=== PATIENT | female | born 1950 | race Caucasian/White ===

== ENCOUNTER 2018-01-02 13:37 | Inpatient (IN) | payer MEDICARE ==
[~2018-01-02] VITALS: Ht 167.6 cm; Wt 84.4 kg
[~2018-01-02 13:37] MED LIST: ASPIR 8181 MG PO; ATIVAN0.5 MG PO; CATAPRES0.1 MG PO; CIPRO500 MG PO; DIABETA5 MG PO; DOXYCYCLINE HY100 MG PO; ESTRADIOL0.5 MG PO; GLUCOPHAGE500 MG PO; GLYBURIDE2.5 MG PO; HYDROCODON-ACE1 EAC8 PO; IRON55 MG PO; LANTUS100 UNITS/ SUB-Q; LEVOTHROID50 MCG PO; LISINOPRIL10 MG PO; LOVASTATIN20 MG PO; METOPROLOL SUCC50 MG PO; METOPROLOL TART50 MG PO; NEURONTIN100 MG PO; NORCO 10-325 T1 EACH PO; OMEPRAZOLE20 MG PO; TOPROL XL50 MG PO; VENTOLIN HFA18 GM IH; VISTARIL50 MG PO; VITAMIN D-32000 UNIT PO; ZITHROMAX250 MG PO; ZOFRAN ODT4 MG SL
[2018-01-02] MEDS ORDERED: COZAAR100 MG PO (13:53)
--- NOTE | 2018-01-02 16:15 | NUR ---
TOOK ALL OF THE PATIENT BELONGINS HOME EXCEPT HER BLACK IN COLOR CELL PHONE
--- NOTE | 2018-01-02 17:14 | NUR ---
PT ADMITTED, ABLE TO HELP MOVE SELF SOME FROM STREACHER TO BED. ORDERS RECEIVED TO SWAB PT FOR FLU A/B AND SENT TO LAB. CBG Q HOUR, PT ON INSULINE DRIP AND CURRENTLY AT 8.8 UNITS/HR. PT IS ABLE TO KEEP SMALL AMOPUTS OF ICE CHIPS DOWN AT THIS TIME.
--- NOTE | 2018-01-02 17:54 | NUR ---
PT C/O PAIN IN THE VAGINAL AREA AND WHEN ASKED FOR MORE INFORMATION SHE STATES "IT IS MY CATHETER THAT IS PAINFUL" EXPAINED THAT IT CAN BE AND SHE WAS OKAY WITH THIS. PT ALSO WANTED SOMETHING TO EAT EXPALAIN THAT HER CBG REMAINS HIGH AND SHE HAS HAD N/V . BUT GAVE PT SOME CHICKEN BROTH.
--- NOTE | 2018-01-02 18:02 | NUR ---
CHANGED INSULIN GTT TO 13.2 UNITS/HR AT THIS TIME PER INSULIN TONY.
--- NOTE | 2018-01-02 18:35 | NUR ---
PT BP ELEVATED, BUT PT IS TRYING TO HAVE A BM ON THE BEDTIME AT THIS TIME. YOU CAN HEAR PT STRAINING AT THIS TIME. PT HAD TO BE REMINDED TO USE THE BEDPAN TO HAVE A BM. PT IS AT THE BEDSIDE AT THIS TIME.
--- NOTE | 2018-01-02 18:50 | NUR ---
PT BP RECHECKED 135/70 AT THIS TIME. PT HAS HAD ARM BENT AND TRYING TO HAVE BM, SHE PASSED SOME GAS AND HAD A SMEAR OF GREEN IN COLOR SOFT FORMED STOOL.
--- NOTE | 2018-01-02 20:00 | NUR ---
RECEIVED REPORT AT 1900, FOUND PT IN BED RESTING WITH AT BEDSIDE. PT IS ORINETED TO SELF AND PLACE. PERRLA IS POSITIVE, GLASCOW SCORE WAS 14, ALL LOBES ARE CLEAR, LOWER LOBES ARE DIMINISHED. ABD SOUNDS ARE PRESENT, NO PERIPHERAL EDEMA NOTED. RADIAL PULSES ARE +2, PEDIS PULSES ARE +1. PT OVERALL IS VERY WEAK. BOTH LEGS ARE VERY PALE BUT WARM TO TOUCH. PT STATED THAT SHE HAS NEUROPATHY IN BOTH LEGS. LEGS ARE PAINFUL TO TOUCH. STATED THAT HE GAVE PT LONG ACTING INSULIN BETWEEN 1100 AND 1200. BG AT 1999 WAS 519. WE ARE KEEPING CURRENT INSULIN DRIP RATE AT 13.2. URINE OUTPUT WAS 400ML AT FROM [id number]. URINE IS CLEAR AND YELLOW. HR RATE IS 120'S -170'S AT TIMES. RR RATE IS IN THE LOW 20'S FOR THE MOST PART.
--- NOTE | 2018-01-02 21:36 | NUR ---
BG AT 2100 WAS 413. INSULIN DRIP IS GOING AT 10.8 AT THIS TIME. PT GAVE ME SOME ANSWER TO HER MEDICAL HX.: HTN, HLD, NEUROPATHY, HYST., KIDNEY STONES, HYPO- OR HYPERTHYROIDISM, UMBILICAL HERNIA REPAIR AND BILATERAL FOOT SX. PT STATED THAT SHE JUST DID NOT FEEL LIKE TAKING HER BG. PT IS WELL AWARE THAT SHE WILL GET SICK. PT SEEMS DEPRESSED AND NOT COPING WELL WITH HER DIABETIS.
--- NOTE | 2018-01-02 22:09 | NUR ---
PT IS COMPLAINING OF NAUSEA AT THIS TIME. WILL CONTINUE TO MONITOR. BG AT 2200 WAS 331, INSULIN DRIP IS NOW GOING AT 7.5 UNITS/HR. URINE OUTPUT FROM [id number] WAS 210. HR AT THIS TIME IS 86, RR IS 19.
--- NOTE | 2018-01-02 22:37 | NUR ---
BP AT 2230 WAS 85/61 (67) WITH A HR OF 80. AT 2234 BP WAS 84/41 (52) WITH HR OF 80. O2 SATS ARE >95% ON RA. MD MONTAÑO WAS CALLED. ORDER WAS GIVEN TO TAKE V/S Q15MIN X2. IF NO CHANGE I WILL CALL HER BACK.
--- NOTE | 2018-01-02 23:06 | NUR ---
BP AT THIS TIME IS WDL AND SO IS HR WELL O2 SATS. BG AT 2300 WAS 219, INSULIN DRIP WAS TITRATED TO 5.1 UINITS/HR. NAUSEA HAS SUBSIDED PT HAS STATED. SINCE BG IS DROPING AT ALMOST A 100UNITS/HR, I WILL TAKE BG AGAIN AT 2330.
--- NOTE | 2018-01-02 23:31 | NUR ---
A PRECAUTIONARY BG WAS TAKEN AT THE 1/2 HOUR TY. IT WAS 201. I WILL INFORM MD MONTAÑO OF THIS SINCE SHE WANTED TO BE CALLED AT BG BEIN 200.
--- NOTE | 2018-01-02 23:45 | NUR ---
RECEIVED NEW ORDERS FOR IV FLUIDS FROM MD MONTAÑO. INSULIN DRIP IS GOING AT 4.2 U/HR AT THIS POINT.
--- NOTE | 2018-01-03 00:10 | NUR ---
BG AT 0000 WAS 175, INSULIN DRIP IS AT 3.6 U/HR AT THIS TIME. LAB IS HERE AT THIS TIME. URINE OUTPUT FROM [id number] WAS ONLY 50ML. I WILL WAIT FOR LABS TO COME BACK AND THEN I WILL CALL MD MONTAÑO.
--- NOTE | 2018-01-03 01:14 | NUR ---
URINE OUTPUT FOR [id number] WAS 25ML. MD MONTAÑO WAS CALLED. WILL CONTINUE TO MONITOR. BG AT 0100 WAS 167, INSULIN DRIP IS GOING AT 3.6 U/HR.
--- NOTE | 2018-01-03 02:05 | NUR ---
BG AT 0200 WAS 95. INSULIN DRIP HAS BEEN TURNED OFF AT THIS TIME.
--- NOTE | 2018-01-03 03:15 | NUR ---
BG AT 0300 WAS 122. INSULIN DRIP RE-STARTED IN COLUM 2 @ 1.4 U/HR. URINE OUTPUT FROM [id number] WAS 40ML. WILL CONTINUE TO MONITOR.
--- NOTE | 2018-01-03 04:05 | NUR ---
BG AT 0400 WAS 93. INSULIN DRIP HAS BEEN TURNED OFF. URINE OUT PUT FROM [id number] HAS INCREASED TO 40ML. V/S OVERALL ARE WDL.
--- NOTE | 2018-01-03 05:12 | NUR ---
BG WAS 106. INSULIN DRIP HAS NOT BEEN STARTED. PT IS SLEEPING.
--- NOTE | 2018-01-03 05:53 | NUR ---
AT START OF SHIFT SBP'S WERE <90 MD MONTAÑO IS AWARE. URINE OUTPUT DECLINED DURING THE COURSE OF THE NIGHT TO 25ML/HR AT ONE POINT. MD MONTAÑO IS AWARE. INSULIN DRIP WAS TITRATED ALMOST HOURLY UNTIL 0400. AT THAT TIME, PT BG WAS 93 AND DRIP HAS SINCE THEN BEEN TURNED OFF. ALL LOBES ARE STILL CLEAR BUT BASES ARE DIMINISHED.ABD SOUNDS WENT FROM ACTIVE TO HYPOACTIVE THIS SHIFT. PT IS PASSING GAS. PT WENT FROM NO PERIPHERAL EDEMA TO TRACE EDEMA ON BOTH FEET AND HANDS. PEDIS PULSES WENT FROM +1 TO +2 AT THIS TIME. PT WENT FROM ORIENTED TO PLACE AND PERSON TO AAO X4 AT THIS TIME. OVERALL STRENGTH HAS ALSO SLIGHTLY IMPROVED. PT HAS REMAINED AFEBRILE SO FAR. NO NEW CONCERNS AT THIS TIME.
--- NOTE | 2018-01-03 07:37 | EKG ---
[facility] [address] [place], [place] [address] Signed Sinus tachycardia Possible Left atrial enlargement Inferior infarct , age undetermined ST \T\ T wave abnormality, consider lateral ischemia Abnormal ECG No previous ECGs available Confirmed by KATHARINE VALDEZ MD ([id number]) on 01/03/2018 7:37:31 AM Electronically Signed By: KATHARINE VALDEZ MD 01/03/18 0737 PATIENT NAME: PEPE STEVENS Electrocardiogram DATE OF : 54 PHYSICIAN: KATHARINE VALDEZ MD REPORT #: [id number] REPORT IS CONFIDENTIAL AND NOT TO BE RELEASED WITHOUT AUTHORIZATION
--- NOTE | 2018-01-03 07:50 | NUR ---
PT DROWSY, COOPERATIVE. DENIES PAIN, NAUSEA, AND SOB AT THIS TIME. VITALS WNL. IN ROOM TO SEE PT.
--- NOTE | 2018-01-03 08:42 | NUR ---
IV SITES INTACT, NO REDNESS OR SWELLING NOTED, PT DENIES PAIN WITH FLUSH, FLUIDS INFUSING EASILY. PT HAS AGREED TO TRY SOME BREAKFAST AND GET UP TO THE CHAIR WHEN IT GETS HERE. PT COOPERATIVE, ALERT AND ORIENTED X4 AT THIS TIME.
--- NOTE | 2018-01-03 09:05 | NUR ---
PT UP TO THE CHAIR TO EAT BREAKFAST. PT ABLE TO STAND AND PIVOT TO CHAIR INDEPENDTLY.
--- NOTE | 2018-01-03 11:13 | NUR ---
PT BACK TO BED FROM CHAIR. STAND BY ASSIST TO STAND AND PIVOT. PT C/O FATIGUE.
--- NOTE | 2018-01-03 11:46 | NUR ---
PT SLEEPING SOUNDLY AT THIS TIME, VITALS WNL.
--- NOTE | 2018-01-03 13:59 | NUR ---
PTS BLOOD SUGAR 218, INSULIN DRIP TITRATED TO 5.1
--- NOTE | 2018-01-03 16:12 | NUR ---
IV SITES INTACT, NO REDNESS OR SWELLING NOTED, FLUIDS INFUSING EASILY. PT DENIES PAIN, NAUSEA, AND SOB AT THIS TIME. PT UP TO BEDSIDE COMMODE, PASSED LARGE AMOUNTS OF FLATUS, PT THEN MOVED BACK TO BED, SITTING UP ON SIDE OF BED. PT HAD PARTIAL BED BATH, SHAMPOO CAP, CLEAN GOWN. PT BRUSHED OWN THEETH.
--- NOTE | 2018-01-03 19:45 | NUR ---
PT SHIFT REPORT RECEIVED FROM DAY SHIFT RN. PT DAYSHIFT RN STOP INSULIN GTT AT THIS TIME AND START BLOOD SUGARS ACHS. CONTINUE FLUIDS AT CURRENT RATE. PT IS RESTING IN BED WITH AT BEDSIDE. NO OTHER NEEDS AT THIS TIME.
--- NOTE | 2018-01-03 20:30 | NUR ---
PT SHIFT ASSESSMENT COMPLETED. PT HAS CLEAR BREATH SOUNDS AND REMAINS ON ROOM AIR. BOWEL TONES ACTIVE. PT HAS NOTED GENERALIZED EDEMA IN ARMS/HANDS. 1+ EDEMA IN ANKLES/SHINS. PT STATES "MY LEGS FEEL TIGHT, AND MY KNEE FEELS TIGHT". NO REDDNESS NOTED IN LEGS. APPLIED NYSTATIN TO GROIN FOR REDDENED AREA. PT EDUCATED ABOUT INSLUIN AND UPDATED ON PLAN OF CARE FOR THE EVENING. PT IS AGREEABLE TO THIS PLAN. WILL CONTINUE TO MONITOR. CALL LIGHT IN HAND.
--- NOTE | 2018-01-03 21:00 | NUR ---
PT READJUSTED WITH PILLOW SUPPORT. ELEVATED LEGS TO HELP WITH EDEMA. PT HAS CALL LIGHT IN HAND AND KNOWS TO CALL FOR ASSISTANCE. CALL LIGHT IN HAND. PT DENIES ANY OTHER NEEDS AT THIS TIME. WILL CONTINUE TO MONITOR.
--- NOTE | 2018-01-03 22:30 | NUR ---
PT RESTING WELL AT THIS TIME. WILL ENCOURAGE REST. PT HAS CALL LIGHT IN HAND.
--- NOTE | 2018-01-04 00:13 | NUR ---
PT IS RESTING WELL AT THIS TIME IN BED. PT IS TURNED ONTO HER SIDE WHEN I ENTERED THE ROOM. PT BS CHECKED 247. PT IS ALERT AND ORIENTED. BREATH SOUNDS REMAIN CLEAR. REHMAN EMPTIED. PT DENIES ANY NEEDS AT THIS TIME. VITALS COMPLETED. WILL CONTINUE TO CLOSELY MONITOR.
--- NOTE | 2018-01-04 02:00 | NUR ---
PT UP TO CAMMODE WITH 1 PERSON STAND-BY. PT TOLERATED WELL. PT BACK TO BED WITH NO DIFFICULTIES. CALL LIGHT IN REACH. WILL CONTINUE TO CLOSELY MONITOR.
--- NOTE | 2018-01-04 05:00 | NUR ---
PT RESTING IN BED. ASSESSMENT COMPLETED AND UNCHANGED FROM PREVIOUS ASSESSMENT. PT VITALS DONE. PT UP TO CAMMODE. NO BM PRESENT, PT STATES "IT WAS ALL GAS". PT BACK TO BED AND RESTING ON SIDE WITH CELL PHONE IN HAND. REHMAN BAG EMPTIED. BREAKFAST ORDERED. CALL LIGHT IN REACH. WILL CONTINUE TO CLOSELY MONITOR.
--- NOTE | 2018-01-04 06:02 | NUR ---
LAB IN TO DRAW MORNING LABS. NO OTHER ISSUES AT THIS TIME. WILL CONTINUE TO CLOSELY MONITOR.
[2018-01-04] MEDS ORDERED: NOVOLIN N100 UNIT/1 SUB-Q (07:06)
[2018-01-04] MEDS ORDERED: METOPROLOL TAR100 MG PO (07:07)
--- NOTE | 2018-01-04 08:19 | NUR ---
PT UP WITH ONE PERSON ASSIST TO BSC, NO BM, PASSING GAS. PT TRANSFERRED TO [facility] CHAIR - VITAL SIGNS TAKEN AND PT EATING ADA BREAKFAST. DR. VALDEZ IN TO ASSESS PT.
[2018-01-04] MEDS ORDERED: GLUCOPHAGE500 MG PO (08:40)
--- NOTE | 2018-01-04 09:00 | NUR ---
PT IN CHAIR AWAKE DID VITALS FOR INTAKE
--- NOTE | 2018-01-04 10:29 | NUR ---
AFTER BREAKFAST PT HAD MED SOFT BROWN BM AND RETURNED TO BED, RESTING WITH HOB ELEVATED. REPORT GIVEN TO SB LOZANO ON MED/SURG. 5 UNITS NOVALOG GIVEN SUBQ FOR AM BLOOD GLUCOSE 227. PT UP TO [facility] CHAIR WITH ONE PERSON ASSIST, DAUGHTER IN ROOM.
--- NOTE | 2018-01-04 11:13 | NUR ---
PT UP TO [facility] CHAIR VISITING WITH FRIEND AND FAMILY MEMBER. PT TRANSFERRED TO MED/SURG ROOM 113 VIA [facility] CHAIR.
--- NOTE | 2018-01-04 11:40 | NUR ---
PATIENT TO FLOOR FROM CCU, FULL VERBAL REPORT FROM TONYA. COLLECTED PATIENT CBG AND PROVIDED LUNCH. PT/OT TO ROOM FOR EVALUATION. LUNG SOUNDS CLEAR THROUGHUT, FULL BODY ASSESMENT DONE. CALL LIGHT WITHIN REACH AND ORIENTED TO ROOM.
--- NOTE | 2018-01-04 12:10 | NUR ---
SET UP FOR LUNCH
--- NOTE | 2018-01-04 14:41 | NUR ---
Patient showered at 1400 with cna2 assist. She ambulated from chair to bathroom with stand-by assist. Nystatin powder placed on right and left pannus. Patient back in bed, call light within reach.
--- NOTE | 2018-01-04 17:41 | NUR ---
PATIENT UP TO BATHROOM, VOIDING WELL SINCE ORI HILL'Andrzej EARLIER TODAY. PATIENT EATING WELL. COMPLAINTS OF PAIN TO LEFT KNEE, NEW ORDER VIA DR. VALDEZ IBUPROFEN PO 400 MG Q6HR. PATIENT RECIEVING SLIDING SCALE.
--- NOTE | 2018-01-04 18:15 | NUR ---
PATIENT TO FLOOR FROM CCU WITH DX OF DKA. CBG ACHS WITH SLIDING SCALE. SOME GENERALIZED WEAKNESS, RECIEVING PT/OT FOR STRENGTHENING- EVALUATION TODAY. HAD SOME COMPLAINTS OF PAIN IN LEFT KNEE AFTER ACTIVITY, NEW ORDER FOR PO IBUPROFEN. IN ROOM WITH PATIENT. AAOX3, CALLS APROPRIATLEY. REHMAN DCD TODAY, VOIDING WELL. HAD LARGE BM.
--- NOTE | 2018-01-04 19:35 | NUR ---
RECIEVED REPORT FROM DAY SHIFT NURSE. PATIENT SITTING UP IN CHAIR. DENIES NEEDS AT THIS TIME. CALL LIGHT IN REACH.
--- NOTE | 2018-01-04 19:49 | NUR ---
VITALS AND I&OS DONE AND CHARTED. HELPED PT TO THE BATHROOM WITH HER FWW AND BACK TO BED. BEDSIDE TABLE AND CALL LIGHT WITHIN REACH.SHE NEEDS NOTHING ELSE AT THIS TIME.
--- NOTE | 2018-01-04 22:19 | NUR ---
PATIENT UP TO BATHROOM WITH ASSIST. VOIDED. BACK TO BED. LUNGS CLEAR, HR REGULAR, BS ACTIVE, ABDOMEN ROUND. +1 PEDAL EDEMA. PATIENT C/O L KNEE PAIN 4/10 BUT STATES SHE CAN WAIT UNTIL 0000 FOR IBUPROFEN. PATIENT ALSO C/O CHEST PAIN THAT CAME AND WENT VERY FAST. STATES IT HAPPENS AT HOME SOMETIMES. SHE DOES HAVE NITRO AT HOME BUT IT COMES AND GOES SO FAST SHE DOESNT TAKE IT. VS OBTAINED. PATIENT DENIES NAUSEA, SHE IS NOT DIAPHORETIC. SHE IS NO LONGER HAVING CHEST PAIN AT THIS TIME. WHEN IT HAPPENED SHE HAD A HARD TIME DESCRIBING THE PAIN. STATES IT WAS AN ACHE ABOUT 3/10 ON THE PAIN SCALE. NOTIFIED CHARGE.
--- NOTE | 2018-01-04 22:24 | NUR ---
VITALS DONE PER REQUEST OF HER RN JAYDA. NOTIFIED HER OF THE VITALS.
--- NOTE | 2018-01-04 23:21 | NUR ---
PATIENT RESTING SUPINE IN BED. NO C/O PAIN AT THIS TIME. REFILLED WATER PITCHER. PATIENT DENIES FURTHER NEEDS. CALL LIGHT IN REACH.
--- NOTE | 2018-01-05 02:15 | NUR ---
PATIENT RESTING IN BED. STATES SHE HAS A SANTANA, IBUPROFEN ADMINISTERED. SUPPLIED PATIENT WITH CRACKERS AND SUGAR FREE PUDDING TO TAKE WITH THE MEDICATION. PATIENT WANTED HOWARD CRACKERS AND I TOLD HER NO BECAUSE OF THE SUGAR CONTENT. ENCOURAGED ORAL FLUIDS. LUNGS CLEAR, HR REGULAR, BS ACTIVE. TRACE PEDAL EDEMA. PATIENT DENIES FURTHER NEEDS. CALL LIGHT IN REACH.
--- NOTE | 2018-01-05 04:40 | NUR ---
PATIENT SLEEPING. CALL LIGHT IN REACH.
--- NOTE | 2018-01-05 06:03 | NUR ---
VITALS AND I&OS DONE AND CHARTED. HELPED PT TO THE BATHROOM AND BACK TO BED WITH HER FWW. FRESH ICE GIVEN. BEDSIDE TABLE AND CALL LIGHT IN REACH. EMPTIED GARBAGES. PT ASKED FOR SOMETHING FOR A HEADACHE. I INFORMED HER RN JAYDA. PT NEEDS NOTHING ELSE AT THIS TIME.
--- NOTE | 2018-01-05 07:15 | NUR ---
RECIEVED BEDSIDE REPORT FROM BLAKE MONTELONGO WITH SN MYA. PT AWAKE AND ALERT IN BED. PT REPORTS NO PAIN AT THIS TIME.
--- NOTE | 2018-01-05 07:46 | NUR ---
PATIENT ASSISTED TO RESTROOM 1PERSON ASSIST. LINENS CHANGED. CHAIR AND MEAL SET UP FOR PATIENT FOR BREAKFAST. STUDENT NURSE IN ROOM TO ASSIST.
--- NOTE | 2018-01-05 09:59 | NUR ---
STUDENT NURSE IN ROOM TO ASSIST PATIENT WITH ORAL CARE. HANDS AND FACE WASHED. PATIENT WOULD LIKE SHOWER TODAY.
--- NOTE | 2018-01-05 10:24 | NUR ---
SPOKE WITH PT RE REPORTED CHEST PAIN. MD AWARE, NO NEW ORDERS. INDUSTRIAL SALES REPRESENTATIVE GETTING PT IN SHOWER.
--- NOTE | 2018-01-05 10:30 | NUR ---
STUDENT ASSISTING PATIENT WITH SHOWER.
--- NOTE | 2018-01-05 11:03 | NUR ---
PT RESTING IN BED. JUST GOT BACK IN BED FROM A SHOWER. NO NEEDS NOTED AT THIS TIME. PERSONAL BELONGINGS IN REACH.
--- NOTE | 2018-01-05 12:54 | NUR ---
PT SITTING IN CHAIR-ALERT, ORIENTED AND BEGINNING TO EAT LUNCH. PT FRIENDLY AND MENTIONED THAT SHE IS FEELING MUCH BETTER, BUT DIDN'T SLEEP VERY WELL LAST NIGHT. PT REQUESTED I CONTACT HER CLASSROOM INSTRUCTIONAL AIDE, WHICH I DID. HE WILL BE COMING IN. EXTENDED A BLESSING, WILL FOLLOW NEEDED
--- NOTE | 2018-01-05 13:53 | NUR ---
THIS RESISTANCE MACHINE WELDER SETTER ASSISTED PATIENT TO THE RESTROOM BY 1 PERSON ASSIST. ASSISTED PATIENT BACK TO BED. PATIENT IS NOW RESTING IN BED. PATIENT STATES THAT HER PAIN LEVEL IS A 7 OUT OF 10 IN HER BACK. RN NOTIFIED. PATIENTS IN ROOM. CALL LIGHT WITHIN REACH. FRESH ICE WATER. NO OTHER NEEDS AT THIS TIME.
--- NOTE | 2018-01-05 14:44 | NUR ---
PT RESTING IN BED, AT BEDSIDE. PERSONAL BELONGINGS IN REACH, CALL LIGHT AVAILABLE. IBUPROPHEN EFFECTIVE FOR BACK PAIN.
--- NOTE | 2018-01-05 16:36 | NUR ---
PATIENT RESTING ON THE COUCH. PATIENTS IN ROOM. FRESH ICE WATER. CALL LIGHT WITHIN REACH. NO OTHER NEEDS AT THIS TIME.
--- NOTE | 2018-01-05 18:03 | NUR ---
THIS SUPERVISOR FABRICATION ASSISTED PATIENT TO THE RESTROOM. 1 PERSON WITH FWW. PATIENTS AND DAUGHTER HAVING DINNER WITH PATIENT. ASSISTED PATIENT BACK TO COUCH. FRESH ICE WATER. CALL LIGHT WITHIN REACH. NO OTHER NEEDS AT THIS TIME.
--- NOTE | 2018-01-05 18:26 | NUR ---
PT MAINTAINED BLOOD SUGAR LEVELS, BREAKFAST 126, LUNCH 276, DINNER 159. PT RESTARTED ORAL DIABETIC MEDS TOLERATED WELL. PT C/O HEADACHE AND BACK PAIN, PRN IBUPROFEN GIVEN, EFFECTIVE. VOIDING WELL, MULTIPLE SMALL BM. IV SL.
--- NOTE | 2018-01-05 19:46 | NUR ---
RECEIVED REPORT FROM DAY SHIFT RN. PATIENT IS RESTING IN BED WATCHING TV. PATIENT DENIES ANY NEEDS AT THIS TIME. CALL LIGHT IN REACH.
--- NOTE | 2018-01-05 20:05 | NUR ---
CHECKED PT'S BS. PT IN BED, NO DISTRESS AT THIS TIME. RN IN ROOM, GIVING HS MEDICATIONS. PT HAS NO CONCERNS OR NEEDS FROM YOUTH LEADER AT THIS TIME. ALERT AND ORIENTED.
--- NOTE | 2018-01-05 20:20 | NUR ---
PATIENT ASSESMENT COMPLETED. PATIENTS EVENING MEDICATIONS GIVEN PER ORDER. PATIENT GIVEN PRN MOTRIN PER ORDER FOR A HEADACHE AND PAIN IN HER NECK. PATIENT GIVEN FRESH ICE WATER. PATIENT DENIES ANY FURTHER NEEDS AT THIS TIME. CALL LIGHT IN REACH.
--- NOTE | 2018-01-05 22:16 | NUR ---
1PA STANDBY ASSIST TO THE BATHROOM BACK TO BED WITH WALKER. PATIENT DID ORAL CARE, WASH HANDS AND COMB HER HAIR. CALL BUTTON WITHIN REACH. REQUESTED PAIN MEDS, BLAKE VALDIVIA WAS NOTIFIED.
--- NOTE | 2018-01-05 22:21 | NUR ---
PATIENT ASSISTED TO THE RESTROOM A SBA W/FWW. PATIENT HAD A SMALL BM X1 AND WAS ABLE TO VOID. PATIENT IS BACK IN BED RESTING. PATIENT TOLERATED AMBULATION WELL. PATIENT DENIES ANY FURTHER NEEDS CALL LIGHT IN REACH.
--- NOTE | 2018-01-05 23:20 | NUR ---
PATIENT IS RESTING IN BED PLAYING A GAME ON HER PHONE. PATIENT DENIES ANY NEEDS AT THIS TIME. CALL LIGHT IN REACH.
--- NOTE | 2018-01-06 00:23 | NUR ---
PATIENT ASSISTED TO THE RESTROOM. PATIENT IS A SBA W/FWW. PATIENT WAS ABLE TO VOID. PATIENT IS NOW BACK IN BED RESTING. PATIENT DENIES ANY FURTHER NEEDS. CALL LIGHT IN REACH.
--- NOTE | 2018-01-06 02:30 | NUR ---
PT UP TO BATHROOM. INCONTINENT OF BM. CHANGED BEDDING AND GOWN. PT OUT OF BED AND AMBULATED TO BATHROOM WITH FWW AND VERY MINIMAL ASSIST. PT THEN BACK IN BED. NO FURTHER NEEDS. CALL LIGHT IN REACH.
--- NOTE | 2018-01-06 03:43 | NUR ---
PATIENT ASSISTED TO THE RESTROOM A SBA W/FWW. PATIENT WAS ABLE TO VOID. PATIENT IS NOW BACK IN BED RESTING. NO FURTHER NEEDS NOTED. CALL LIGHT IN REACH.
--- NOTE | 2018-01-06 05:11 | NUR ---
PATIENT RESTED WELL THROUGHOUT THE SHIFT. PATIENT IS ON AN ADA DIET AND IS TOLERATING IT WELL. PATIENT IS A SBA W/FWW AND TOELRATES AMBULATION WELL. PATIENT IS SL AND IV FLUSHES WELL. PATIENT RECEIVED X1 MOTRIN FOR SANTANA. PATIENT HAD X2 BMS. PATIENT IS AAO X3 AND USES CALL LIGHT APPROPRIATELY.
--- NOTE | 2018-01-06 05:36 | NUR ---
PATIENT GIVEN PRN MOTRIN FOR A HEADACHE AND NECK ACHE. PATIENT RATES PAIN AT A 6/10. PATIENT IS RESTING IN BED PLAYING A BAME ON HER PHONE. PATIENT DENIES ANY FURTHER NEEDS CALL LIGHT IN REACH.
--- NOTE | 2018-01-06 06:05 | NUR ---
HELPED PT TO RESTROOM STANDBY ASSIST WITH WALKER. PT IS BACK IN BED AND CALL LIGHT IS WITHIN REACH.
--- NOTE | 2018-01-06 07:15 | NUR ---
RECIEVED BEDSIDE REPORT FROM BLAKE VALDIVIA. PT UP TO BATHROOM THEN BACK TO BED. PERSONAL SUPPLIES AND CALL LIGHT IN REACH. PT DENIED NEEDS.
--- NOTE | 2018-01-06 08:00 | NUR ---
PATIENT TO BATHROOM WITH STAND BY ASSIST WITH FWW. STUDENT NURSE IN ROOM. NO OTHER NEEDS AT THIS TIME.
--- NOTE | 2018-01-06 09:05 | NUR ---
PT UP WITH [facility] PHYSICAL THERAPY. PT DENIED NEEDS. AMBULATING WITH FWW WITH STANDBY ASSIST.
--- NOTE | 2018-01-06 09:30 | NUR ---
STUDENT NURSE OFFERED PATIENT ASSISTANCE WITH SHOWER. PATIENT REFUSED AND STATED SHE WOULD LIKE TO NAP AT THIS TIME. LINENS CHANGED. HANDS AND FACE WASHED.
--- NOTE | 2018-01-06 10:30 | NUR ---
STUDENT NURSE OFFERED TO ASSIST PATIENT WITH SHOWER FOR THE SECOND TIME. PATIENT REFUSED DUE TO SHE IS WAITING FOR HER TO COME VISIT.
--- NOTE | 2018-01-06 11:40 | NUR ---
PT SITTING UP IN RECLINER, EATING LUNCH. PERSONAL SUPPLIES AND CALL BUTTON IN REACH. PT DENIED NEEDS. BG WAS 322, SO GAVE NOVOLOG 7 UNITS SQ PER SSI ORDERS.
--- NOTE | 2018-01-06 12:20 | NUR ---
DR. THORNE IN TO SEE PT, DISCUSSED PLAN OF CARE, CHANGE IN INSULIN TO NPH. DR. THORNE DISCUSSED DIABETIC EDUCATION OPPORTUNITY WITH THE WINCH TRUCK OPERATOR, AND ASSESSED PT.
--- NOTE | 2018-01-06 13:41 | NUR ---
PT SITTING UP IN RECLINER, FAMILY MEMBER AT SIDE. PT RATED PAIN TO LEFT KNEE 2/10, STATED SHE FEELS "GOOD". DENIED NEEDS. PERSONAL SUPPLIES AND CALL LIGHT IN REACH.
--- NOTE | 2018-01-06 13:44 | NUR ---
PT SITTING UP IN RECLINER. ATE 50 % OF LUNCH. AT SIDE. PERSONAL SUPPLIES AND CALL BUTTON IN REACH.
--- NOTE | 2018-01-06 14:27 | NUR ---
PT SITTING IN CHAIR-ALERT, ORIENTED AND EATING LUNCH. SHE MENTIONED THAT SHE DID NOT SLEEP WELL LAST NIGHT, PARTLY BECAUSE SHE HAS SLEPT SO MUCH THE LAST FEW DAYS. FEELING MUCH BETTER THOUGH OVERALL, EXTENDED A BLESSING, WILL FOLLOW NEEDED
--- NOTE | 2018-01-06 15:15 | NUR ---
CARE CONFERENCE aTTENDEES: PATIENT, [place]E STAFF: DR THORNE, MYSELF CASE MANAGEMENT, [facility], HOLLIE PT, PABLO RN, AND QUINCY ACQUISITION ASSOCIATE. DR THORNE TALKED ABOUT HER DIABETIC KETOACIDOSIS. STATING THAT IT IS DOING MUCH BETTER NOW AND SHE IS DOING BETTER. SAYS THAT SHE WILL GET DIABETIC EDUCATION WHILE HERE AND SOME TRAINING IN DRAWING UP INSULIN FROM A VIAL. PT STATES SHE HAS DONE THAT IN THE PAST. PT STATEDS THAT SDHE WILL PROBABLY MEET HER PT GOALS BY FRIDAY OF 500 FT WITH A CANE[address] THORNE STATES THAT WHEN THAT GOAL IS MET SHE CAN BE DISCHARGED. PT DENIED FURTHER QUESTIONS, WILL CONT FOLLOWING HER THROUGHTOUT HER STAY IN HOSPITAL.
--- NOTE | 2018-01-06 15:24 | NUR ---
PT IN BED. ON COUCH. HAVING CARE CONFERENCE. ASTRID ARMSTRONG, PHARMACIST, HOLLIE, PHYSICAL THERAPIST, LEXY, ASSOCIATE PROFESSOR OF CRIMINAL JUSTICE, AND QUINCY, SPRAY GUN STRIPER IN ROOM FOR CARE CONFERENCE, WELL THIS RN. DISCUSSING GOALS, AND CARE PLAN.
--- NOTE | 2018-01-06 16:00 | NUR ---
PATIENT BACK TO BED FROM BATHROOM WITH FWW STAND BY ASSIST. CALL BUTTON IN REACH. IN ROOM. NO OTHER NEEDS AT THIS TIME.
--- NOTE | 2018-01-06 16:25 | NUR ---
PT SITTING UP IN RECLINER, PERSONAL SUPPLIES AND CALL LIGHT IN REACH. AT SIDE. BG CHECKED, 187.
--- NOTE | 2018-01-06 17:43 | NUR ---
PATIENT SITTING UP IN CHAIR EATING DINNER. PATIENTS IS IN ROOM EATING DINNER WELL. FRESH ICE WATER. CALL LIGHT WITHIN REACH. NO OTHER NEEDS AT THIS TIME.
--- NOTE | 2018-01-06 17:58 | NUR ---
PT UP WITH FWW WITH STANDBY ASSIST. WORKED WITH PHYSICAL THERAPY, WAS ABLE TO AMBULATE 50 FT WITH CANE, AND 500 FT WITH FWW. PER PHYSICAL THERAPY, GOAL IS TO AMBULATE 500 FT WITH CANE. PT ON ADA DIET, TOLERATING WELL. HAD SEVERAL LOOSE STOOLS, PT REPORTS THAT THIS IS HER BASELINE. STARTED METOPROLOL AND NPH INSULIN TODAY. IV SALINE LOCKED, NEW IV, 22G PLACED LEFT FOREARM FOR ROUTINE IV ROTATION.
--- NOTE | 2018-01-06 18:45 | NUR ---
PT SITTING UP IN RECLINER. IV FLUSHED WITH 10 CC NS, FLUSHES WELL. PT REPORT HEADACHE IS IMPROVED, RATED PAIN 2/10. DENIED NEEDS. PERSONAL SUPPLIES AND CALL BUTTON IN REACH.
--- NOTE | 2018-01-06 19:10 | NUR ---
RECEIVED REPORT FROM DAY SHIFT RN. PATIENT IS RESTING IN RECLINER EATING SUPPER. NO NEEDS NOTED AT THIS TIME. CALL LIGHT IN REACH.
--- NOTE | 2018-01-06 21:53 | NUR ---
PATIENT ASSESMENT COMPLETED. PATIENT ASSISTED TO THE RESTROOM A SBA W/CANE. PATIENT IS NOW BACK IN BED RESTING. PATIENTS EVENING MEDICATIONS GIVEN PER ORDER. PATIENT COMPLAINS OF A HEADACHE. PRN MOTRIN GIVEN PER ORDER FOR HEADACHE. PATIENT DENIES ANY FURTHER NEEDS AT THIS TIME. CALL LIGHT IN REACH.
--- NOTE | 2018-01-07 00:07 | NUR ---
PATIENT ASSISTED TO THE RESTROOM A SBA W/CANE. PATIENT IS STEADY ON HER FEET. PATIENT IS BACK IN BED RESTING. PATIENT WAS ABLE TO VOID. PATIENT DENIES ANY FURTHER NEEDS. CALL LIGHT IN REACH.
--- NOTE | 2018-01-07 02:45 | NUR ---
PATIENT IS RESTING IN BED PLAYING ON HER PHONE. PATIENT DENIES ANY NEEDS AT THIS TIME. CALL LIGHT IN REACH.
--- NOTE | 2018-01-07 03:47 | NUR ---
PATIENT ASSISTED TO THE RESTRROM BY SENIOR MEDICAL DIRECTOR. PATIENT REQUESTED MEDICATION FOR A HEADACHE. PATIENT GIVEN PRN MOTRIN FOR A HEADACHE. PATIENT DENIES ANY FURTHER NEEDS CALL LIGHT IN REACH.
--- NOTE | 2018-01-07 05:15 | NUR ---
PATIENT STRUGGLED TO REST ON THIS SHIFT. PATIENT IS ON AN ADA DIET AND IS TOLERATING IT WELL. PATIENT IS A SBA W/CANE AND TOELRATES AMBULATION WELL. PATIENT IS SL AND IV FLUSHES WELL. PATIENT RECEIVED X2 MOTRIN FOR HEADACHE. HAD X2 BMS. PATIENT IS AAO X3 AND USES CALL LIGHT APPROPRIATELY. PATIENT RECEIVED PRN ZOFRAN FOR NAUSEA.
--- NOTE | 2018-01-07 05:20 | NUR ---
PATIENT COMPLAINS OF NAUSEA. PATIENTS BS CHECKED AND IT WAS 151. PATIENTS VITALS TAKEN AND RECORDED. PATIENT GIVEN PRN ZOFRAN PER ORDER. PATIENT DENIES ANY FURTHER NEEDS AT THIS TIME. CALL LIGHT IN REACH.
--- NOTE | 2018-01-07 06:49 | NUR ---
PATIENT ASSISTED TO THE RESTRROM A SBA W/CANE. PATIENT RATES HER HEADACHE A 2/10. PATIENT HAD A LARGE LOOSE BM. PATIENT IS BACK IN BED RESTING NO FURTHER NEEDS NOTED. CALL LIGHT IN REACH.
--- NOTE | 2018-01-07 07:14 | NUR ---
RECIEVED BEDSIDE REPORT FROM BLAKE VALDIVIA. PT IN BED, AWAKE, ALERT. PERSONAL SUPPLIES IN REACH, IS CALL BUTTON.
--- NOTE | 2018-01-07 07:38 | NUR ---
PT TO BATHROOM, WALKS INDEPENDENTLY WITH CANE, WITH SBA PT COMPLAINS OF HEADACHE REQUESTS PRN MOTRIN. STATES THAT PAIN IS A 5/10 ON PAIN SCALE. PAIN MEDS NOT DUE UNTIL 929 PT MADE AWARE.
--- NOTE | 2018-01-07 07:50 | NUR ---
PT UPT TO CHAIR. ASSESSMENT PERFORMED PT COMPLAINED OF SOME NAUSEA, LAST DOSE OF ZOFRAN WAS AT 0505 NOT DUE AGAIN UNTIL 1105, PT MADE AWARE. POC BLOOD GLUCOSE 108MG/DL MORNING SLIDING SCALE INSULIN NOT GIVEN.
--- NOTE | 2018-01-07 08:00 | NUR ---
0800 MEDS GIVEN, PT VERBALIZED UNDERSTANDING OF WHAT EACH MEDICATION WAS FOR. PT HAD SOME DIFFICULTY WITH METFORMIN, TOOK BOTH AT ONCE WHICH CAUSED HER TO CHOKE. THE PATIENT COUGHED AND DRANK SOME SIPS OF WATER FOLLOWING THE INCIDENT AND DID NOT APPEAR TO HAVE ANY FURTHER COMPLICATION. ASKED THE PATIENT IF SHE HAS PROBLEMS WITH HER MEDICATIONS AT HOME AND SHE STATES THAT SHE DOES NOT. PT IS EATING BREAKFAST INDEPENDENTLY WITHOUT DIFFICULTY. PT HAS NO C/O
--- NOTE | 2018-01-07 08:30 | NUR ---
PT GIVEN AM MEDS, BP ELEVATED X3 LAST READING 160/90. PRIMARY RN NOTIFIED.
--- NOTE | 2018-01-07 09:00 | NUR ---
PT BACK TO CHAIR, WALKS INDEPENDENTLY USING CANE WITH SBA. PT HAS COMPLAINTS OF DIZZINESS WHILE WALKING. B/P RECHECKED WITH MANUAL CUFF 150/90. PRIMARY RN NOTIFIED OF THIS RESULT.
--- NOTE | 2018-01-07 09:30 | NUR ---
PT SHOWERED INDEPENDENTLY, SBA ONLY. PT STILL HAS COMPLAINTS OF NAUSEA. STATES THAT IV ZOFRAN HELPED SOME AND WONDERS IF SHE CAN HAVE ANOTHER DOSE, INFORMED PT THAT SHE WAS NOT DUE UNTIL 1130 BUT WOULD TALK WITH PRIMARY RN. PT HAS NOT OTHER C/O
--- NOTE | 2018-01-07 09:53 | NUR ---
PT TOOK SHOWER WITH ASSIST FROM STUDENT NURSE, KATIE. PT IS NOW SITTING UP IN RECLINER. DENIED NEEDS. PERSONAL SUPPLIES IN REACH, CALL BUTTON IN REACH.
--- NOTE | 2018-01-07 09:55 | NUR ---
PT INTERMEDIATE ACTIVNG INSULIN AND LOVENOX ADMINISTERED, PT VERBALIZED UNDERSTANDING OF WHY EACH WAS GIVEN. THE PT HAS NO C/O AT THIS TIME.
--- NOTE | 2018-01-07 10:30 | NUR ---
PT REQUESTED TO RETURN BACK TO BED. AMBULATED FROM CHAIR INDEPENDENTLY WITH NO DIFFICULTY, SBA ONLY. PT CALL LIGHT IN REACH.
--- NOTE | 2018-01-07 11:06 | NUR ---
STUDENT NURSE STATES THAT PATIENT HAD A SHOWER.
--- NOTE | 2018-01-07 11:46 | NUR ---
PT SITTING UP IN RECLINER. DENIED NAUSEA. EATING LUNCH. PERSONAL SUPPLIES AND CALL BUTTON IN REACH.
--- NOTE | 2018-01-07 12:37 | NUR ---
PT DECLINED LUNCH. STATED THAT SHE DOES NOT HAVE MUCH OF AN APETITE RIGHT NOW. STUDENT NURSE ENCOURAGED PT TO DRINK CHOCOLATE GLUCERNA THAT WAS PROVIDED. PT UP TO BATHROOM WITH 1 PERSON ASSIST WITH CANE.
--- NOTE | 2018-01-07 15:05 | NUR ---
1126 PRIMARY RN IN TO CHECK BLOOD GLUCOSE PT EXPRESSED DISCONTENT STATES THAT SHE DOES NOT CHECK THEM AT HOME D/T COST. PT WILL NEED SOME ASSISTANCE TO GET METER AND STRIPS. DIRECTOR PHARMACEUTICAL NOTIFIED OF PT CONCERN. 1236. PT ATE 20% OF LUNCH, INFORMED PRIMARY RN WHO TOLD ME TO GIVE HER SOME GLUCERNA. PT CONTINUES TO C/O DIZZINESS & NAUSEA AND STATES THAT SHE "FEELS FUNNY". PT BACK TO BED, TOLD HER TO DRINK GLUCERNA AND LET HER KNOW I WOULD BE BACK TO SEE HOW SHE IS FEELING. 1254 PT STATES THAT SHE DOES NOT LIKE THE CHOCOLATE FLAVOURED GLUCERNA, PREFERS STRAWBERRY. DIETARY CONTACTED FOR STRAWBERRY TO BE BROUGHT TO ROOM. PT HAS NO FURTHER COMPLAINTS. CALL LIGHT IN REACH 1410. PT CONTINUES TO HAVE COMPLAINTS OF NAUSEA, REQUEST PRN ZOFRAN. ZOFRAN BAR MACHINE OPERATOR PRODUCTION IV. PT UP TO CHAIR, AMUBULATES WITH CANE INDEPENDENTLY WITH SBA. PT HAS NOT FURTHER C/O. DONA
--- NOTE | 2018-01-07 15:06 | NUR ---
PT SITTING UP IN RECLINER. HAD C/O NAUSEA AND RECIEVED PRN NIKOLASAN FROM RESPIRATORY SCIENTIST AND HER INSTRUCTOR. PT REPORTS THIS HAS IMPROVED, BUT THAT SHE FEELS LIKE SHE HAS REFLUX. DENIED PAIN. PERSONAL SUPPLIES AND CALL LIGHT IN REACH.
--- NOTE | 2018-01-07 15:12 | NUR ---
PT UP, AMBULATING IN HALLS WITH HOLLIE, PHYSICAL THERAPIST. APPEARS TO BE TOLERATING WELL.
--- NOTE | 2018-01-07 15:13 | NUR ---
PATIENT STATES THAT SHE WAS FEELING A LITTLE BIT OF REFLUX. RN WAS IN ROOM WHEN SHE STATED THIS. THIS EARLY CHILDHOOD EDUCATOR AIDE ASSISTED PATIENT TO THE RESTROOM. 1P SBA WHILE PATIENT WALKED WITH CANE.
--- NOTE | 2018-01-07 15:50 | NUR ---
PT HAD REQUESTED TO TALK TO ME ABOUT GETTING A NEW METER FOR BLOOD SUGARS. I WENT INTO ROOM PT AND HER ARE IN ROOM AND ASK HOW I CAN HELP THEM. THEY SAY NOTHING REALLY, BUT WE WERE TALKING PT STATES SHE HAS A BLOOD SUGAR MACHINE, JUST HASN'T BEEN USING IT FOR QUITE A WHILE. SHE STATES MOST OF THE TIME I AM TOO TIRED TO DEAL WITH MY BLOOD SUGARS. WE TALKED ABOUT THE IMPORTANCE OF HER MONITORING HER BLOOD SUGARS AND IF SHE IS TOO TIRED TO DO IT MAYBE SHE NEEDS TO ALLOW HER TO HELP HER. PT STATES HE WOULD BE OK DOING THIS AND WITH GIVING HER INSULIN IF SHE IS TOO TIRED. I EXPLAINED THE IMPORTANCE OF CHECKING HER BLOOD SUGARS AND TAKING HER INSULIN AND HOW IT CAN AFFECT ALL SYSTEMS OF YOUR BODY, PT SAYS SEE RIGHT THERE ARE 5 OR 6 THINGS THAT YOU HAVE OR HAVE TALKED ABOUT HAVING. 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 THIS REALLY IS SOME SHE CAN FROM IF SHE DOESN'T TAKE CARE OF HERSELF. SHE STATES I KNOW I AM LEARNING THE HARD WAY. THEN RETURNED BACK TO HER MEDICAL TRANSPORT JOB, IF SHE CAN'T GET BS UNDER CONTROL IT IS VERY DANGEROUS FOR HER TO BE DRIVING AND THEY MAY TELL HER SHE CAN'T DRIVE ANY MORE DUE TO UNCONTROLLED DIABETES. SHE SAID I COULD KILL MYSELF OR SOMEONE ELSE. AGREED WITH HER. PT AND SAID THEY ARE GOING TO TRY TO MANAGE HER DIABETES BETTER.
--- NOTE | 2018-01-07 16:23 | NUR ---
PT SITTING UP IN RECLINER. BG CHECKED, 140. PT GIVEN MALOX FOR C/O INDIGESTION. PT DENIED OTHER NEEDS. IN ROOM WITH PT. PERSONAL SUPPLIES AND CALL LIGHT IN REACH.
--- NOTE | 2018-01-07 17:01 | NUR ---
PT SITTING UP IN RECLINER. C/O NAUSEA, BUT ATE BAG OF CHIPS AND AN ICE CREAM CUP WHILE THIS RN WAS IN ROOM WITH PT. PT HAS NO ANTI NAUSEA MEDICATION AVAILABLE AT THIS TIME. PT PROVIDED WITH FRESH ICE WATER. PERSONAL SUPPLIES AND CALL LIGHT IN REACH.
[2018-01-07] MEDS ORDERED: GLUCOPHAGE500 MG PO (17:36)
[2018-01-07] MEDS ORDERED: HUMULIN N100 UNIT/1 SUB-Q (17:38)
[2018-01-07] MEDS ORDERED: HUMULIN R100 UNIT/1 SUB-Q (17:38)
[2018-01-07] MEDS ORDERED: SUCRALFATE1 GM PO (17:40)
--- NOTE | 2018-01-07 18:05 | NUR ---
PATIENT STILL CURRENTLY EATING DINNER.
--- NOTE | 2018-01-07 18:05 | NUR ---
PATIENT IS UP IN CHAIR EATING DINNER AND WATCHING TV. PATIENTS IN ROOM. PATIENT STATES THAT SHE STILL FEELS A LITTLE NAUSEOUS. RN NOTIFIED. CALL LIGHT WITHIN REACH. NO OTHER NEEDS AT THIS TIME.
--- NOTE | 2018-01-07 18:13 | NUR ---
PT C/O NAUSEA OFF AND ON THIS SHIFT. HAD PRN ZOFRAN X 1, MALOX X 1, AND WILL RECIEVE GI COCKTAIL. PT DID AMBULATE WITH CANE WITH PHYSICAL THERAPY, AND PER P.T. NOTE, MET PHYSICAL THERAPY GOAL. DR. THORNE IN TO SEE PT THIS EVENING. POTENTIALLY DISCHARGE TO HOME IN AM. PT ON ADA DIET, APETITE POOR TO FAIR. PT DRANK GLUCERNA AT LUNCH.
--- NOTE | 2018-01-07 18:27 | NUR ---
Standby assisted patient from bathroom to bedside. Patient asked about meds. Alerted patient's nurse of med request. Call light in reach.
--- NOTE | 2018-01-07 21:05 | NUR ---
C/O FEELING NAUSEATED, MEDICATED WSTIH ZOFRAN 4MG IV, NO EMESIS, EATING A SANDWICH AND FRUIT AND DRINKING FLUIDS, NO EMESIS. NO C/O PAIN, COOP WITH ASSESSMENT
--- NOTE | 2018-01-07 21:15 | NUR ---
ROUNDED CHARGE. PATIENT REPOSITIONED. PATIENT DENIES ANY NEEDS AT THIS TIME. CALL LIGHT IN REACH.
--- NOTE | 2018-01-07 21:37 | NUR ---
HELPED PT TO THE BATHROOM AND BACK TO BED. BEDSIDE TABLE AND CALL LIGHT WITHIN REACH.
--- NOTE | 2018-01-07 23:21 | NUR ---
RESTING ON RIGHT SIDE, NO C/O RESP DISTRESS OR PAIN
--- NOTE | 2018-01-08 01:54 | NUR ---
up to brp with one assist, voided and had loose soft bm, back to bed, tolerated well, no c./o pain
--- NOTE | 2018-01-08 04:03 | NUR ---
c/o upset stomach. Medicated with Maalox, awake, watching tv
--- NOTE | 2018-01-08 05:43 | NUR ---
Pt has been awake most of this shift. Was medicated with Zofran x1 per c/o feeling nauseated, effective. Was medicated at 0357 with Maalox c/o upset stomach, effective, tolerating ADA diet, sandwich and juices/fluids w/o emesis. Reinforced diabetic diet/lifestyle changes, taking meds as scheduled/order by MD. s/sx hypoglycemia and hyperglycemia, and scheduled med side effects. Stated understanding. SL intact. no other c/o. Gets up to the brp with one assist. Coop with assessments
--- NOTE | 2018-01-08 06:42 | NUR ---
Up to brp using cane, voided and had small loose bm. Back to chair. Ambulating in room using cane, no further c/o n/v, pain or high or low blood sugars simptoms.
--- NOTE | 2018-01-08 07:26 | NUR ---
PT LAYING IN BED, SEEMED ALERT AND ORIENTED. PT MENTIONED THAT SHE HAD NOT SLEPT WELL, AND THAT SHE DID NOT FEEL WELL AT ALL-TOUGH DAY. HER HAD JUST LEFT. SAID A PRAYER, WILL FOLLOW NEEDED
--- NOTE | 2018-01-08 08:22 | NUR ---
PATIENT SITTING UP EATING BREAKFAST, PATIENT STATES " I AM READY TO GO HOME, WONDERING WHEN THE DOCTOR IS COMING?" DISCUSSED POC AND PROCESS OF DISCHARGE. PHYSICAL THERAPY IN ROOM TO WORK WITH PATIENT.
--- NOTE | 2018-01-08 08:42 | NUR ---
PT USED BATHROOM CALL BUTTON, STANDBY ASSIST FROM BATHROOM TO CHAIR. TEETH BRUSHED. PT DECIDED SHE WOULD LIKE TO SHOWER AFTER THERAPY BEFORE SHE GOES HOME. FRESH ICE WATER. ROOM TIDIED.
--- NOTE | 2018-01-08 10:00 | NUR ---
PT SET UP FOR INDEP. SHOWER, IN ROOM NOW. WILL BE BACK FOR VITALS.
--- NOTE | 2018-01-08 11:19 | NUR ---
PATIENT SITTING UP IN CHAIR, FAMILY IN ROOM. VITALS,I/OS DONE. READY TO DC
--- NOTE | 2018-01-08 11:21 | NUR ---
PATIENT DISCHARGED TO HOME, DISCUSSED FOLLOW UP APPOINTMENTS AND RECORDING BPS AND BLOOD SUGARS ON GRAPH. PATIENT ABLE TO EXPLAIN HOW TO PUT DATA ON THE SHEETS. DISCUSSED SYMPTOMS OF HIGH AND LOW/HIGH BLOOD SUGARS. PATIENT ABLE TO TEACH BACK DIABETIC CARE. PATIENT CONCERNED OF DISPOSAL OF SYRINGES, BECAUSE SHE WAS TOLD WAS WRONG HOW SHE WAS DISPOSING OF SYRINGES AT HOME. CALLED TO THE [facility] AND [facility] AND PROVIDED INFORMATION AND PRICING. PROVIDED PATIENT WITH SCRIPTS IN HAND, AT BEDSIDE PARTICIAPTING IN CONVERSATION.
--- NOTE | 2018-01-08 14:56 | NUR ---
PT DRESSED AND READY TO BE DC'D SHE IS WAITING FOR A ACHAIR, HER SON AND ARE WITH HER. EXTENDED A BLESSING GOOD TO SEE HER BETTER
== END 2018-01-08 12:00 | disposition home or self-care (01) | DRG 637 ==
LOC: ED 13:37 → CCU 15:37 → MS 01-04 11:11
PROVIDERS: ADMIT Internal Medicine
DX: E11.10 Type 2 diabetes mellitus with ketoacidosis without coma (principal); G93.41 Metabolic encephalopathy; N17.9 Acute kidney failure, unspecified; Z79.4 Long term (current) use of insulin; Z91.14 Patient's other noncompliance with medication regimen; I10 Essential (primary) hypertension; E78.5 Hyperlipidemia, unspecified; K21.9 Gastro-esophageal reflux disease without esophagitis; Z88.0 Allergy status to penicillin; Z79.82 Long term (current) use of aspirin
CPT/HCPCS: 36415; 51702; 71045; 80048; 80053; 81001; 82010; 82550; 82803; 83605; 83735; 84100; 84484; 85025; 87040; 87088; 87502; 93005; 93010; 97110; 97116; 97162; 97530; G8978; G8979; J0692; J1650; J1956; J2405; J3475; J7030; J7040; J7042; J7120

== ENCOUNTER 2018-02-20 16:49 | Emergency (ER) | payer MEDICARE ==
[~2018-02-20] VITALS: Ht 152.4 cm; Wt 85.7 kg
[~2018-02-20 16:49] MED LIST changes: +COZAAR100 MG PO; +HUMULIN N100 UNIT/1 SUB-Q; +HUMULIN R100 UNIT/1 SUB-Q; +METOPROLOL TAR100 MG PO; +NOVOLIN N100 UNIT/1 SUB-Q; +SUCRALFATE1 GM PO
[2018-02-20] MEDS ORDERED: METHYLPREDNISOLO4 M1 PO (18:12)
== END 2018-02-20 18:26 | disposition home or self-care (01) ==
LOC: ED 16:49
DX: L23.9 Allergic contact dermatitis, unspecified cause (principal); I10 Essential (primary) hypertension; E11.9 Type 2 diabetes mellitus without complications; Z88.5 Allergy status to narcotic agent; Z88.2 Allergy status to sulfonamides; Z88.1 Allergy status to other antibiotic agents; Z88.8 Allergy status to other drugs, medicaments and biological substances; Z79.4 Long term (current) use of insulin; Z79.82 Long term (current) use of aspirin; Z79.899 Other long term (current) drug therapy
CPT/HCPCS: 99283; Q0163

== ENCOUNTER 2019-02-20 20:22 | Emergency (ER) | payer MEDICARE ==
[~2019-02-20] VITALS: Ht 149.9 cm; Wt 93.0 kg
[~2019-02-20 20:22] MED LIST changes: +METHYLPREDNISOLO4 M1 PO; +METOPROLOL SUC200 MG PO; +VITAMIN D35000 UNIT PO
[2019-02-20] MEDS ORDERED: ISOSORBIDE MONO30 MG PO (20:38)
[2019-02-20] MEDS ORDERED: SUCRALFATE1 GM PO (20:38)
[2019-02-20] MEDS ORDERED: DOXYCYCLINE HY100 MG PO (20:53)
== END 2019-02-20 21:03 | disposition home or self-care (01) ==
LOC: ED 20:22
DX: J20.9 Acute bronchitis, unspecified (principal); J45.909 Unspecified asthma, uncomplicated; I10 Essential (primary) hypertension; E11.9 Type 2 diabetes mellitus without complications; E78.00 Pure hypercholesterolemia, unspecified; Z90.710 Acquired absence of both cervix and uterus; Z88.0 Allergy status to penicillin; Z88.2 Allergy status to sulfonamides; Z88.1 Allergy status to other antibiotic agents; Z88.5 Allergy status to narcotic agent; Z88.8 Allergy status to other drugs, medicaments and biological substances; Z79.4 Long term (current) use of insulin; Z79.82 Long term (current) use of aspirin
CPT/HCPCS: 99283

== ENCOUNTER 2019-10-16 20:12 | Emergency (ER) | payer MEDICARE ==
[~2019-10-16] VITALS: Ht 149.9 cm; Wt 95.7 kg
[~2019-10-16 20:12] MED LIST changes: +ISOSORBIDE MONO30 MG PO
[2019-10-16] MEDS ORDERED: ZOFRAN4 MG PO (23:35)
== END 2019-10-17 00:02 | disposition home or self-care (01) ==
LOC: ED 20:12
DX: K52.9 Noninfective gastroenteritis and colitis, unspecified (principal); R00.0 Tachycardia, unspecified; I10 Essential (primary) hypertension; J45.909 Unspecified asthma, uncomplicated; E11.9 Type 2 diabetes mellitus without complications; Z88.0 Allergy status to penicillin; Z88.2 Allergy status to sulfonamides; Z88.1 Allergy status to other antibiotic agents; Z88.5 Allergy status to narcotic agent; Z79.4 Long term (current) use of insulin; Z79.899 Other long term (current) drug therapy
CPT/HCPCS: 80053; 81001; 83690; 85025; 87502; 96360; 96361; 99284-25; J7030

== ENCOUNTER 2020-03-30 07:11 | Day surgery (SDC) | payer MEDICARE ==
[~2020-03-30] VITALS: Ht 149.9 cm; Wt 96.6 kg
[~2020-03-30 07:11] MED LIST changes: +ZOFRAN4 MG PO
--- NOTE | 2020-03-30 07:49 | NUR ---
PATIENT ARRIVES TO DEPARTMENT REPORTING CONTINUED FORMED STOOL. PATIENT REPORTS SHE SLEPT "FINE ALL NIGHT." NEW ORDER RECEIVED FROM DR GUZMÁN.
--- NOTE | 2020-03-30 09:15 | NUR ---
03/30/20 0915 Ingris Garza 0907-PATIENT ARRIVED TO PACU ON 2L NC DROWSY BUT AWAKE. DENIES PAIN OR NAUSEA. RR EVEN. IVF INFUSING. PATIENT ON LEFT LATERAL SIDE. ABDOMEN IS ROUND AND SOFT. ST 114. 0914-GLUCOSE 243. PATIENT REPORTS TAKES NOVOLOG AT HOME. PATIENT EASILY DOZES BACK TO SLEEP. SNORING.
--- NOTE | 2020-03-30 10:07 | NUR ---
ICED WATER GIVEN. CALL LIGHT WITHIN REACH.
--- NOTE | 2020-03-30 11:52 | NUR ---
ALFRED 1120: PATIENT REPORTS "I THINK I CAN GET READY TO GO." DISCHARGE INSTRUCTIONS ARE GIVEN AND PATIENT VERBALIZES UNDERSTANDING. PATIENT IS GETTING DRESSED IN MY PRESENCE AND SHE TRANSFERS HERSELF TO WHEELCHAIR, USES THE RESTROOM, TRANSFERS TO THE WHEELCHAIR AND THEN TO PERSONAL VEHICLE AND TOLERATES THAT WELL.
--- NOTE | 2020-03-31 08:43 | OR ---
[facility] [address], [place] [address] Signed DATE OF OPERATION: 03/30/2020 SURGEON: Anthony Guzmán MD PREOPERATIVE DIAGNOSES: 1. Personal history of adenomatous polyps, 2018. 2. Personal history of tubulovillous adenomatous polyp at 13 cm in 2018 with tattoo. 3. History of internal and external hemorrhoids, status post PPH, hemorrhoidopexy and hemorrhoidectomy. POSTOPERATIVE DIAGNOSES: 1. A 4 mm cecal polyps x2. 2. A 4 mm polyps x3 in proximal transverse colon. 3. A 4 mm polyp at 4 cm. 4. Minimal pandiverticulosis. 5. Minimal internal and external hemorrhoids. 6. Tattoo at 13 cm. PROCEDURE: Colonoscopy with hot biopsy. ESTIMATED BLOOD LOSS: None. INDICATIONS: Darcy is a 70-year-old female, who presents for followup colonoscopy. She had a negative colonoscopy in 2007, except for the hemorrhoids. She then had her PPH hemorrhoidopexy and excision of external hemorrhoids in 2008. She came in April 2018 and had very minimal internal and external hemorrhoids. She had hyperplastic and adenomatous polyps removed in her sigmoid colon. At 13 cm on the left side of the rectum, she had a large 15-20 mm tubulovillous adenomatous polyp without dysplasia or cancer. We left a tattoo at that area. She returns now for followup colonoscopy with respect to the above. There is no family history of colon cancer or polyps. She generally does well with Versed and fentanyl. However, she continues to gain weight and she has now developed obstructive sleep apnea and required significant airway control throughout the procedure. She was often awake because of this reason. Consequently, she would benefit from monitored anesthesia care with propofol in the future. In the office, I had given Darcy a pamphlet on colonoscopy. She understands the test quite well. She knows there is risk including, but not limited to gas bloating, crampy abdominal pain, bleeding, perforation requiring surgery, and missed diagnosis. She had Electronically Signed By: ANTHONY GUZMÁN MD 03/31/20 0843 PATIENT NAME: DARCY STEVENS OPERATIVE REPORT DATE OF : 54 REPORT #: [id number] PHYSICIAN: ANTHONY GUZMÁN MD PCP: EJ CHILD DO REPORT IS CONFIDENTIAL AND NOT TO BE RELEASED WITHOUT AUTHORIZATION [facility] [address] [place] [id number] Signed expressed understanding and wished to proceed. DESCRIPTION OF PROCEDURE: Darcy was taken into our endoscopy suite and placed in the left lateral decubitus position. She was given a total of 4 mg of Versed and 100 mcg of fentanyl. A digital rectal exam was performed and she has very small external hemorrhoid tissue/skin tags. She has good sphincter tone. No masses. The adult colonoscope was introduced and advanced all around into the cecum under direct visualization of camera. Again, she was a bit awake during the test and our nurse had to basically hold her airway throughout almost the entire procedure. She has gained a significant amount of weight over the last few years and consequently, she is demonstrating obstructive sleep apnea. She would benefit from monitored anesthesia care with propofol. Her prep was quite good. She did receive a fleets enema in the preop area that cleaned out the rectum. We could easily see the appendiceal orifice and the ileocecal valve. She had two small polyps in the cecum easily removed with hot biopsy forceps. The scope was slowly withdrawn. On this occasion, we did find that she has small diverticula throughout the colon. We took three additional 4 mm polyps in the proximal transverse colon. The left and sigmoid colon were unremarkable except for the diverticulosis. The rectum showed a small 4 mm polyp just above the anal canal. It was easily removed with hot biopsy forceps. We can see just very small internal hemorrhoid tissue. We also saw with the tattoo up at 13 cm. It is well healed with no evidence of any recurrent polyp. After this, the gas was suctioned out and the colonoscope removed. Overall, Darcy tolerated the procedure well. RECOMMENDATIONS: I will see Darcy back in my office in 7 to 14 days to review her results. She could probably wait 5 years for repeat colonoscopy. She would benefit from monitored anesthesia care with propofol as described above. Anthony Guzmán MD ALB/MODL /[id number] cc: Ej Child DO Electronically Signed By: ANTHONY GUZMÁN MD 03/31/20 0843 PATIENT NAME: DARCY STEVENS OPERATIVE REPORT DATE OF : 54 REPORT #: [id number] PHYSICIAN: ANTHONY GUZMÁN MD PCP: EJ CHILD DO REPORT IS CONFIDENTIAL AND NOT TO BE RELEASED WITHOUT AUTHORIZATION [address] [address] Signed Anthony Guzmán MD Copies: EJ CHILD ANDREW L MD ~ Electronically Signed By: ANTHONY GUZMÁN MD 03/31/20 0843 PATIENT NAME: DARCY STEVENS OPERATIVE REPORT DATE OF : 54 REPORT #: [id number] PHYSICIAN: ANTHONY GUZMÁN MD PCP: EJ CHILD DO REPORT IS CONFIDENTIAL AND NOT TO BE RELEASED WITHOUT AUTHORIZATION
--- NOTE | 2020-04-03 11:39 | PATH ---
[facility] [address] [place], [place] [address] Signed SPECIMEN(S): A COLON POLYP AT 60 CM SPECIMEN(S): B CECAL POLYP SPECIMEN(S): C PROXIMAL TRANSVERSE POLYP SPECIMEN(S): D COLON POLYP AT 4 CM SPECIMEN SOURCE: A. COLON POLYP AT 60 CM B. CECAL POLYP C. PROXIMAL TRANSVERSE POLYP D. COLON POLYP AT 4 CM CLINICAL HISTORY: Colonoscopy. Pre: History of colon polyps. Post: Polyps, diverticulosis. MICROSCOPIC DESCRIPTION: Histologic sections of all submitted blocks are examined by light microscopy. These findings, together with the gross examination, support the pathologic diagnosis. FINAL PATHOLOGIC DIAGNOSIS: A. Colon, polyp at 60 cm, polypectomy: - Tubular adenoma. - Negative for high-grade dysplasia or malignancy. B. Colon, cecum, polyp, polypectomy: - Fragments of tubular adenoma. - Negative for high-grade dysplasia or malignancy. C. Colon, proximal transverse, polyp, polypectomy: - Fragments of tubular adenoma. - Negative for high-grade dysplasia or malignancy. D. Colon, polyp at 4 cm, polypectomy: - Fragments of cauterized, polypoid colonic mucosa with mild hyperplastic changes and focal dilated mucosal vessels. - Negative for dysplasia or malignancy. NAL:cml:C2NR GROSS DESCRIPTION: Four specimens are received in four containers, labeled "PH." A. The specimen, labeled "PH, #1," and designated on the requisition "colon polyp at 60 cm," is received in formalin and consists of two trammell soft tissue polypoid fragments that measure 0.3 cm in greatest dimension. The specimen is entirely submitted in cassette (A1). B. The specimen, labeled "PH, #2," and designated on the requisition "cecal PATIENT NAME: PEPE STEVENS PATHOLOGY DATE OF : 54 REPORT #: [id number] PHYSICIAN: MISSY DANGELO PCP: LONNIE CHILD DO REPORT IS CONFIDENTIAL AND NOT TO BE RELEASED WITHOUT AUTHORIZATION [facility] [address], [place] [address] Signed polyp," is received in formalin and consists of two trammell soft tissue polypoid fragments that measure 0.4 cm in greatest dimension. The specimen is entirely submitted in cassette (B1). C. The specimen, labeled "PH, #3," and designated on the requisition "proximal transverse polyp," is received in formalin and consists of three trammell soft tissue polypoid fragments that measure 0.3 cm in greatest dimension. The specimen is entirely submitted in cassette (C1). D. The specimen, labeled "PH, #4," and designated on the requisition "colon polyp at 4 cm," is received in formalin and consists of two trammell soft tissue polypoid fragments that measure 0.4 cm in greatest dimension. The specimen is entirely submitted in cassette (D1). AT (under the direct supervision of a pathologist) The Gross Description was prepared using a voice recognition system. The report was reviewed for accuracy; however, sound-alike word errors, addition and/or deletions may occur. If there is any question about this report, please contact Client Services. PERFORMING LABORATORY: The technical component was performed by [facility], [address] [place] [id number] (Trim Machine Adjuster: Janeth Lopez MD; CLIA# [id number]). Professional interpretation was performed by [facility], [facility], [address] [address] (CLIA# [id number]). Diagnostician: Lisa Lockett MD Pathologist Electronically Signed 04/03/2020 Copies: ~ PATIENT NAME: PEPE STEVENS PATHOLOGY DATE OF : 54 REPORT #: [id number] PHYSICIAN: MISSY DANGELO PCP: LONNIE CHILD DO REPORT IS CONFIDENTIAL AND NOT TO BE RELEASED WITHOUT AUTHORIZATION
== END 2020-03-30 11:30 | disposition home or self-care (01) ==
LOC: OPS 07:11 → DS 07:11 → OPS 08:15
PROVIDERS: Colon & Rectal Surgery
PROC: 0DBE8ZZ Excision of Large Intestine, Via Natural or Artificial Opening Endoscopic (ICD-10-PCS; 2020-03-30)
PROC: 0DBL8ZZ Excision of Transverse Colon, Via Natural or Artificial Opening Endoscopic (ICD-10-PCS; 2020-03-30)
PROC: 0DBH8ZZ Excision of Cecum, Via Natural or Artificial Opening Endoscopic (ICD-10-PCS; principal; 2020-03-30 08:15)
DX: D12.3 Benign neoplasm of transverse colon (principal); D12.6 Benign neoplasm of colon, unspecified; K64.8 Other hemorrhoids; K57.30 Diverticulosis of large intestine without perforation or abscess without bleeding; G47.33 Obstructive sleep apnea (adult) (pediatric); Z86.010 Personal history of colon polyps; Z79.899 Other long term (current) drug therapy; Z79.82 Long term (current) use of aspirin; Z79.4 Long term (current) use of insulin
CPT/HCPCS: 88305; 99153; G0500; J2250; J3010; J7121

== ENCOUNTER 2021-10-12 13:54 | Inpatient (IN) | payer MEDICARE ==
[~2021-10-12] VITALS: Ht 149.9 cm; Wt 73.7 kg
--- NOTE | 2021-10-12 18:00 | NUR ---
PT ARRIVED IN CCU AT 1722. PT IS WEAK BUT ABLE TO WALK. INSULIN DRIP AND BOLUSES X2 RUNNING. PT NOT ORINENTED TO EVENT. V/S WDL, URINE OUPUT 300MLS SO FAR. LOBES CLEAR, ABD SOUNDS PRESENT, PT DENIES PAIN, PULSES WDL. PT DID STATE THAT SHE IS AFRAID TO FALL AT HOME. PT MAY NEED A WALKER. PT ALSO HAS NO IDEA HOW TO MANAGE HER DMII. HER DOES THAT FOR HER USUALLY. HE IS AT [employer] [facility].
--- NOTE | 2021-10-12 20:00 | NUR ---
SHIFT REPORT RECEIVED FROM BLAKE ROSALES. ASSESSMENT COMPLETED. PT APPEARS SOMEWHAT DROWSY, IS DISORIENTED TO TIME AND EVENT, IS OTHERWISE ORIENTED. DENIES PAIN. LUNGS CLEAR, RA. HR REGULAR. BOWEL TONES ACTIVE, DENIES NAUSEA. REPORTS THAT SHE IS HUNGRY AND THIRSTY, ORAL SWABS PROVIDED TO MOISTEN MOUTH, EDUCATION PROVIDED ON NPO STATUS. SKIN GROSSLY INTACT WITHOUT EDEMA, REDNESS NOTED UNDER PANNUS. IV INTACT AND PATENT. CB, INSULIN DRIP TITRATED TO 3.4 UNITS/HR PER PROTOCOL. PT DENIES FURTHER REQUESTS, CALL LIGHT WITHIN REACH.
--- NOTE | 2021-10-12 21:00 | NUR ---
CB, INSULIN DRIP TITRATED TO 2.4 UNITS/HR PER PROTOCOL. IVF SWITCHED TO D5 1/2NS @ 125ML/HR PER EMAR.
--- NOTE | 2021-10-12 22:00 | NUR ---
CB, INSULIN DRIP TITRATED TO 4.2 UNITS/HR PER PROTOCOL. PHELBOTOMIST IN ROOM AT THIS TIME FOR LAB DRAW.
--- NOTE | 2021-10-12 23:26 | NUR ---
CB, INSULIN DRIP TITRATED TO 3.6 UNITS/HR PER PROTOCOL. PT UP TO BSC, VOIDED 200ML AND RETURNED TO BED. PT REPORTS NAUSEA, PRN ZOFRAN ADMINISTERED. NO FURTHER REQUESTS, CALL LIGHT WITHIN REACH.
--- NOTE | 2021-10-13 00:05 | NUR ---
CB, INSULIN DRIP TITRATED TO 1.8 UNITS/HR PER PROTOCOL. ASSESSMENT COMPLETED. REPORTS NAUSEA HAS IMPROVED SINCE PRN ZOFRAN. REMAINDER OF ASSESSMENT IS UNCHANGED. DENIES NEEDS AT THIS TIME, CALL LIGHT WITHIN REACH.
--- NOTE | 2021-10-13 01:04 | NUR ---
CB, INSULIN DRIP TITRATED TO 2 UNITS/HR PER PROTOCOL.
--- NOTE | 2021-10-13 02:07 | NUR ---
CB, INSULIN DRIP TITRATED TO 0.9 UNITS/HR PER PROTOCOL. SECURITY SYSTEMS ENGINEER IN ROOM TO COLLECT BLOOD FOR LABWORK.
--- NOTE | 2021-10-13 03:05 | NUR ---
CB, INSULIN DRIP TITRATED TO 1 UNIT/HR PER PROTOCOL.
--- NOTE | 2021-10-13 04:26 | NUR ---
CB, INSULIN DRIP TITRATED TO 2.8 UNITS/HR PER PROTOCOL. ASSESSMENT COMPLETED AND UNCHANGED. PT UP TO BSC WITH SBA, PT REMAINS WEAK AND LETHARGIC, ABLE TO VOID 200ML YELLOW URINE. NOW BACK IN BED, DENIES FURTHER NEEDS, CALL LIGHT WITHIN REACH.
--- NOTE | 2021-10-13 05:05 | NUR ---
CB, INSULIN DRIP TITRATED TO 4.2 UNITS/HR PER PROTOCOL.
--- NOTE | 2021-10-13 05:26 | NUR ---
WAS NOTIFIED BY PRODUCTION EDITOR THAT PT IS REPORTING NAUSEA, PRN ZOFRAN GIVEN AT THIS TIME.
--- NOTE | 2021-10-13 06:06 | NUR ---
CB, INSULIN DRIP TITRATED TO 3.6 UNITS/HR PER PROTOCOL.
--- NOTE | 2021-10-13 07:04 | NUR ---
CB, INSULIN DRIP TITRATED TO 1.8 UNITS/HR PER PROTOCOL. PT FINALLY SLEEPING AND WAS ABLE TO SLEEP THROUGH FINGER STICK. (HAS ONLY BEEN SLEEPING OFF AND ON SINCE ABOUT 0). IV SITE REMAINS INTACT.
--- NOTE | 2021-10-13 07:30 | NUR ---
REPORT RECIEVED. PATIENT IS RESTING IN BED WITH HOB ELEVATED.
--- NOTE | 2021-10-13 08:00 | NUR ---
ASSESSMENT DONE, C/O MILD NECK PAIN. INSULIN GTT INFUSING AND REMAINS ON Q1 HR BLOOD SUGARS. TALKED WITH PATIENT ABOUT POC, INDICATES UNDERSTANDING. C/O SLIGHT NAUSEA. SEE EMAR FOR Q1 HR ACCUCHECKS AND TITRATION OF INSULIN.
[2021-10-13] MEDS ORDERED: METOCLOPRAMIDE H5 MG PO (09:02)
[2021-10-13] MEDS ORDERED: METOPROLOL SUC200 MG PO (09:03)
[2021-10-13] MEDS ORDERED: LEVOTHYROXINE50 MCG PO (09:05)
--- NOTE | 2021-10-13 09:40 | NUR ---
PHYS THERAPY HERE TO WORK WITH PATIENT.
--- NOTE | 2021-10-13 11:10 | NUR ---
INSULIN GTT NOW INFUSING AT 5.1 UNITS HR. KPHOS INFUSING AT 85 ML/HR. IVF D5 1/2 NS ON HOLD AT THIS TIME. PATIENT HAS BEEN ASKING FOR SOMETHING TO EAT, BUT CONTINUES TO C/O SLIGHT NAUSEA. AFFECT FLAT.
--- NOTE | 2021-10-13 13:15 | NUR ---
UP TO BR TO VOID 400 ML OF CONCENTRATED URINE. PATIENT IS ASKING FOR FOOD. DR. VALDEZ UPDATED AND NOW OK TO GIVE CLEAR TO FULL LIQUIDS. JELLO AND CRACKERS GIVEN. DR. VALDEZ IS AWARE OF CURRENT INSULIN GTT DOSE, LAST BLOOD SUGAR, AND MOST CURRENT LABS. NO FUTHER ORDERS.
--- NOTE | 2021-10-13 14:00 | NUR ---
TOOK JELLO AND CRACKERS W/O NAUSEA.
--- NOTE | 2021-10-13 17:00 | NUR ---
DR. VALDEZ HERE TO SEE PATIENT. ORDERS REIEVED TO DC INSULIN GTT. THIS DONE. ACCUCHECK 164. HUMALOG 1 UNIT SQ GIVEN. SITTING UP IN BED TO EAT POTATOES AND GRAVY. 60 CARB DIET ORDERED. PATIENT IS ASKING FOR FOOD. IVF DC PER ORDERS.
--- NOTE | 2021-10-13 18:22 | NUR ---
TOOK DINNER WELL. DESENEX APPLIED UNDER BREAST,RIGHT AXILLARY AREA AND PANNUS. DENIES PAIN. ENCOURGED TO TAKE FLUIDS.
--- NOTE | 2021-10-13 19:09 | NUR ---
NO FUTHER CHANGES. REPORT TO NEXT SHIFT. RESTFUL AT THIS TIME.
--- NOTE | 2021-10-13 19:30 | NUR ---
PATIENT REPORT RECIEVED FROM BLAKE CORTEZ. PATIENT IS RESTING IN THE BED. BREATHING IS EQUAL AND UNLABORED. CALL LIGHT WITHIN REACH NO FUTHER NEEDS.
--- NOTE | 2021-10-13 20:00 | NUR ---
PATIENT ASSESSMENT COMPLETE. MEDICATIONS GIVEN ORDERED. PATIENT IS DISORIENTED TO TIME AND EVENT. PATIENT THINKS IT IS MORNING TIME. LUNG SOUNDS ARE CLEAR THROUGHOUT. PATIENT OXYGEN SATURATIONS AND RR WNL ON ROOM AIR. HR 70-90 BPM IN SINUS RHYTHM. AFEBRILE. PATIENT DENIES PAIN AND SHORTNESS OF BREATH. PATIENT COMPLAINS OF NASEAU PRN ZOFRAN GIVEN. PATIENT WAS INCONTINENT OF URINE AND STOOL WHEN ASSESSED. ASSISTED TO COMMODE. PATIENT TOLERATED MOVE WELL. LINENS CHANGED. URINE WAS CLEAR AND YELLOW. BM WAS SMALL AND SOFT. BOWEL TONES ACTIVE. IV SITES PATENT. NYSTATIN APPLIED TO PANNUS AREA AND BELOW THE BREASTS. PLAN OF CARE UPDATED. CALL LIGHT WITHIN REACH NO FUTHER NEEDS.
--- NOTE | 2021-10-13 22:00 | NUR ---
PATIENT RESTING AT THIS TIME. BREATHING IS EQUAL AND UNLABORED. CALL LIGHT WITHIN REACH NO FUTHER NEEDS.
--- NOTE | 2021-10-14 | NUR ---
PATIENT ASSESSMENT COMPLETE. ASSISTED PATIENT TO BEDSIDE COMMODE. PATIENT IS ALERT AND DISORIENTED TO TIME AND EVENT. PATIENT LUNG SOUNDS ARE CLEAR. RR AND OXYGEN SATURATIONS ARE WNL ON ROOM AIR. HEART RATE 70-90 BPM. SINUS RHYTHM. URINE IS CLEAR AND YELLOW. BOWEL TONES ACTIVE. PATIENT DENIES PAIN, SHORTNESS OF BREATH AND NAUSEA. PLAN OF CARE UPDATED. PATIENT BACK TO BED. CALL LIGHT WITHIN REACH NO FUTHER NEEDS.
--- NOTE | 2021-10-14 02:00 | NUR ---
PATIENT RESTING IN BED. VITAL SIGNS DOCUMENTED. BREATHING IS EQUAL AND UNLABORED. CALL LIGHT WITHIN REACH NO FUTHER NEEDS.
--- NOTE | 2021-10-14 04:00 | NUR ---
PATIENT ASSESSMENT COMPLETE. PATIENT IS DISORIENTED TO TIME AND EVENT. LUNG SOUNDS ARE CLEAR THROUGHOUT. RR AND OXYGEN SATURATIONS WNL ON ROOM AIR. HR BETWEEN 70-80 BPM. PATIENT TEMP WAS 99.3. PATIENT DENIES PAIN, SHORTNESS OF BREATH OR NASEAU. URINE OUTPUT WAS CLEAR AND YELLOW. BOWEL TONES ACTIVE. PLAN OF CARE UPDATED. CALL LIGHT WITHIN REACH NO FUTHER NEEDS.
--- NOTE | 2021-10-14 06:30 | NUR ---
PATIENT UP TO BEDSIDE COMMODE. PATIENT STATED "SHE HAD A GOOD NIGHT OF REST AND IS FEELING BETTER." UNDERSTOOD IT WAS MORNING TIME AND READY FOR BREAKFAST. PATIENT AMBULATED BACK TO BED. BREATHING EQUAL AND UNLABORED. CALL LIGHT WITHIN REACH NO FUTHER NEEDS.
--- NOTE | 2021-10-14 07:30 | NUR ---
REPORT RECIEVED. PATIENT IS IN BED RESTING, NO DISTRESS NOTED.
--- NOTE | 2021-10-14 08:00 | NUR ---
ASSESSMENT DONE. ACCUCHECK 229, 5 UNITS OF HUMALOG INSULIN SQ GIVEN. OOB TO TO BR TO VOID, THEN TO CHAIR FOR BREAKFAST. USING WALKER WHEN UP IN ROOM, IS STABEL ON FEET WHEN USING WALKER. DR. VALDEZ HERE TO SEE PATIENT. PLAN IS TO TRANSFER TO MED-SURG TODAY. PATIENT IN MORE INTERACTIVE TODAY, AFFECT REMAINS FLAT.
--- NOTE | 2021-10-14 10:00 | NUR ---
TOOK BREAKFAST WELL.
--- NOTE | 2021-10-14 10:20 | NUR ---
AMBULATED TO SHOWER USING WALKER, ACCOMP BY RN.
--- NOTE | 2021-10-14 10:40 | NUR ---
TOLERATED SHOWER WELL. SHOWER GIVEN BY THIS RN. AMBULATED BACK TO ROOM, NOW BACK IN CHAIR. PATIENT LOOKING AT MENU TO ORDER LUNCH.
--- NOTE | 2021-10-14 11:08 | NUR ---
IN CHAIR RESTING. LUNCH ORDERED.
--- NOTE | 2021-10-14 11:20 | NUR ---
PHYS THERAPY HERE TO WORK WITH PATIENT.
--- NOTE | 2021-10-14 12:00 | NUR ---
[facility], HUMALOG INSULIN 13 UNITS ORDERED.
--- NOTE | 2021-10-14 12:30 | NUR ---
PATIENT IS HOUSE CONV OF THIS MORNING, THUS ASSESSMENT NOT DONE AT THIS TIME. PATIENT REMAINS IN CHAIR.
--- NOTE | 2021-10-14 12:30 | NUR ---
SITTING IN CHAIR TO EAT LUNCH. PATIENT RECIEVED 13 UNITS OF HUMALOG INSULIN.
--- NOTE | 2021-10-14 13:10 | NUR ---
TO MED-SURG VIA CHAIR. TOOK 100% OF LUNCH.
--- NOTE | 2021-10-14 13:10 | NUR ---
pt arrived to floor at this time via the chair. pt appears to have a flat affect at this time. pt states that she does not need anything at this time, call light within reach.
--- NOTE | 2021-10-14 15:30 | NUR ---
this rn in pts room to check on pt. pt sitting up to chair at this time and denies needing anything at this time. call light within reach.
--- NOTE | 2021-10-14 16:35 | NUR ---
Medications reconciled through pharmacy records and patient interview. Compliance issues
--- NOTE | 2021-10-14 17:20 | NUR ---
THIS RN IN PTS ROOM TO GIVE MEDS. 21 UNITS OF HUMALIN GIVEN. PT STATES "I WAS AFRAID YOU WERE GOING TO GIVE ME INSULIN" THIS RN EDUCTED PT ABOUT THAT SHE NEEDED THE INSULIN DUE TO HER BLOOD SUGAR, PT STATES THAT SHE DOESN'T LIKE ALL THE "POKING" THAT COMES WITH THE DIABETES, SHE HAS BEEN A DIABETIC FOR 5 YEARS PER PT PT STRUGGLING TO CUT FOOD- APPEARS TO ONLY USE HER RIGHT HAND- PT HAS A FLAT AFFECT THAT ALMOST APPEARS DEPRESSED AND NOT WILLING TO CARE FOR HERSELF FULLY. THIS RN ASSISTED PT WITH CUTTING FOOD TO BITE SIZES. PT STILL IN CHAIR, CALL LIGHT WITHIN REACH AND MED EDUCATION COMPLETED ON NEW MEDS. PT DOES NOT APPEAR INTERESTED IN LEARNING.
--- NOTE | 2021-10-14 19:25 | NUR ---
BEDSIDE REPORT RECEIVED FROM OFFGOING RNFAY. PT SITTING UP IN CHAIR WITH CURTAIN OPEN. CALL LIGHT IN REACH.
--- NOTE | 2021-10-14 20:24 | NUR ---
PT HIV COUNSELOR LIGHT, PT SITTING IN CHAIR, PT REQUESTS TO USE RESTROOM. PT AMBULATED TO TOILET WITH HER WALKER WITH DONALD ASSIST. VOIDED 100 ML URINE. ATTENDS CLEAN AND DRY. PT WANTS TO GO LAY ON BED, PT AMBULATED WITH YASMINE SHI TO BED. COVERED WITH BLANKETS. CALL LIGHT IN REACH.
--- NOTE | 2021-10-14 22:30 | NUR ---
PT ASSESSMENT COMPLETE. PT DENIES PAIN OR SOB. REPORTS NAUSEA. SCHEDULED ANTIEMETIC ADMINISTERED. PT WITH FLAT AFFECT. UNABLE TO ACCURATELY STATE DATE. SLOW TO RESPOND TO QUESTIONS. SKIN UNDER BREASTS AND PANNUS RED. SCHEDULED POWDER APPLIED TO AREAS. PT UP TO BATHROOM AND BACK TO BED WITH 1 PA/FWW TOLERATED WELL. IV FLUSHED X 2, WNL, PATENT. PT PROVIDED WITH CRACKERS. DENIES FURTHER NEEDS AT THIS TIME, CALL LIGHT IN REACH.
--- NOTE | 2021-10-14 23:32 | NUR ---
CALL LIGHT ANSWERED. 1 PA TO THE BATHROOM USING WALKER. PATIENT IS BACK IN BED. BED ALARM ON SAFETY. WARM BLANKET PROVIDED. NO OTHER NEEDS AT THIS TIME.
--- NOTE | 2021-10-15 00:03 | NUR ---
PT ROUNDING. PT LYING IN BED AWAKE. DENIES NEEDS. CALL LIGHT IN REACH.
--- NOTE | 2021-10-15 01:23 | NUR ---
PT UTLIZES CALL LIGHT, REQUESTS TO USE THE BATHROOM. PT UP TO BR AND BACK TO BED WITH SBA AND FWW. TOLERATED WELL. SCHEDULED MEDS ADMINISTERED. CRACKERS REQUESTED AND PROVIDED. PT DENIES FURTHER NEEDS AT THIS TIME. CALL LIGHT IN REACH.
--- NOTE | 2021-10-15 04:05 | NUR ---
PT ROTARY DRIER OPERATOR LIGHT WANTED TO SIT UP ON EDGE OF BED, WANTS TO HAVE A SNACK, PROVIDED CRACKERS. PT REQUESTS TO GO BACK TO BED AFTER THIS, CALL LIGHT IN REACH PT BACK IN BED.
--- NOTE | 2021-10-15 04:48 | NUR ---
PT RESTING IN BED, LYING ON R SIDE. EYES CLOSED. RESPIRATIONS EVEN AND UNLABORED. PT APPEARS TO BE SLEEPING. CALL LIGHT IN REACH.
--- NOTE | 2021-10-15 05:41 | NUR ---
PT ASSESSMENT COMPLETE. PT RESTING IN BED AWAKE. STATES SHE FINALLY SLEPT WELL LAST NIGHT. PT DENIES PAIN, NAUSEA, OR SOB. PT WITH FLAT AFFECT ORIENTED X 3, DISORIENTED TO DATE. PT DENIES NEEDS AT THIS TIME. CALL LIGHT IN REACH.
--- NOTE | 2021-10-15 07:18 | NUR ---
THIS RN RECEIVED REPORT FROM PRADIP LOZANO. PT APPEARS TO BE RESTING AT THIS TIME WITH RESPIRTATIONS NOTED.
--- NOTE | 2021-10-15 08:10 | NUR ---
THIS RN IN PTS ROOM TO GIVE SCHEDULED MEDS. PT UP TO CHAIR THIS AM. PT EXCLAMINED "NOT MORE SHOTS" THIS RN EDUCATED PT ABOUT NEEDING TO TAKE HER INSULIN DUE TO THAT BEING THE REASON SHE WAS SO SICK AND CAME TO THE HOSPITAL. PT STILL AGREEABLE TO TAKE MEDS
--- NOTE | 2021-10-15 08:22 | NUR ---
PATIENT UP TO BATHROOM AND THEN TO CHAIR, 1PA FWW. WARM BLANKET GIVEN. CALL LIGHT IN REACH. NO FURTHER NEEDS AT THIS TIME.
--- NOTE | 2021-10-15 10:00 | NUR ---
THIS RN BACK IN PTS ROOM TO GIVE PT THE REST OF HER MONRING MEDS. PT STATED THAT SHE THOUGHT SHE TOOK ALL HER MEDS THIS AM- THIS RN EDUCATED PT THAT SHE ONLY TOOK HER MORNING INSULIN BUT SHE STILL NEEDED TO TAKE HER BLOOD PRESSURE MED. PT NODDED BUT NOT SHOW RECEPTIVENESS TO EDUCATION.
--- NOTE | 2021-10-15 11:14 | NUR ---
THIS RN ATTEMPTED TO CALL [facility] FOR A DIABETES EDUCATION, SHE IS OUT OF THE OFFICE UNTIL 10/23
--- NOTE | 2021-10-15 11:57 | NUR ---
H&P, PT/OT, FACESHEET AND MED REC FAXED TO KAMAR AT [facility] FOR REVIEW.
--- NOTE | 2021-10-15 12:15 | NUR ---
this rn in pts room to give scheduled meds. pt sitting up to chair at this time. pt not excited about needing to get insulin but willing to be given meds. pt needs nothing further. call light within reach. pt does require assitance with setting up her meals
--- NOTE | 2021-10-15 13:10 | NUR ---
Patient is in chair with call light. Visitor is in room.
--- NOTE | 2021-10-15 13:30 | NUR ---
this rn in pts room per request. pt states that she needs to use restroom. pt able to stand and transfer with sba. pt tolerated well and back to bed with call light within reach. pts son in room prior to call- asking why she is thinking about going to [place]- this rn discussed with him that pt is not taking her meds- pts son reports she knows what to take just doesn't like to- this rn reitered to son that this is why pt is in hospital
--- NOTE | 2021-10-15 14:05 | NUR ---
PT SITTING IN CHAIR, SON IN RM. REGIONAL DIRECTOR OF FINANCEMichell EVANS DOING VS, GAVE ENCOURAGEMENT AND BLESSING. SHE SMILED AND WILL FOLLOW NEEDED
--- NOTE | 2021-10-15 18:21 | NUR ---
PATIENT SITTING UP IN CHAIR. VITALS AND I&O'S CHARTED. FRESH WATER GIVEN. CALL LIGHT IN REACH. NO FURTHER NEEDS AT THIS TIME.
--- NOTE | 2021-10-15 19:05 | NUR ---
BEDSIDE REPORT RECEIVED FROM OFFGOING RNFAY. PT RESTING IN CHAIR WITH CALL LIGHT IN REACH.
--- NOTE | 2021-10-15 20:56 | NUR ---
CALL LIGHT ANSWERED. SBA TO RESTROOM WITH FWW. INSTRUCTED TO USE CALL LIGHT WHEN FINISHED. pt VERBALIZES UNDERSTANDING.
--- NOTE | 2021-10-15 22:24 | NUR ---
PT ASSESSMENT COMPLETE. PT CONFUSED, THINKS IT IS 10 AM. UNABLE TO ACCURATELY STATE DATE. PT ORIENTED TO PERSON AND PLACE. PT DENIES PAIN, NAUSEA, OR SOB. SCHEDULED MEDICATIONS ADMINISTERED. ACCUCHECK OBTAINED. PT WITH REDNESS UNDER BREASTS AND PANNUS. SCHEDULED POWDER APPLIED. IV FLUSHED X 2. PT REPORTS TENDERNESS TO R HAND IV, DC'D AT THIS TIME, CATHETER TIP INTACT. PT TOLERATED WELL. PT PROVIDED WITH SUGAR FREE JELLO AND WARM BLANKET. FURTHER NEEDS DENIED AT THIS TIME. CALL LIGHT IN REACH.
--- NOTE | 2021-10-15 22:50 | NUR ---
SBA TO THE BATHROOM. PATIENT WASHED HER FACE AND BRUSHED HER TEETH. PATIENT IS BACK IN BED. BED ALARM ON FOR SAFETY.
--- NOTE | 2021-10-15 23:46 | NUR ---
CALL LIGHT ANSWERED. SBA TO THE BATHROOM AND BACK TO BED. PATIENT C/O HUNGRY. PRIMARY RN NOTIFIED AND CALLED REAL ESTATE REPRESENTATIVE FOR LUNCH BOX.
--- NOTE | 2021-10-16 00:31 | NUR ---
PT REQUESTS [place] BOX, PROVIDED AND SET UP ON BEDSIDE TABLE. PT'S HOB ELEVATED. PT DENIES FURTHER NEEDS AT THIS TIME. CALL LIGHT IN REACH.
--- NOTE | 2021-10-16 02:27 | NUR ---
PATIENT WAS UP TO THE BATHROOM. SBA. PATIENT IS BACK IN BED NOW. BED ALARM ON. CALL LIGHT WITHIN REACH.
--- NOTE | 2021-10-16 05:33 | NUR ---
PATIENT USED THE BATHROOM. PATIENT IS BACK IN BED. BED ALARM ON. CALL LIGHT WITHIN REACH.
--- NOTE | 2021-10-16 05:40 | NUR ---
PT RESTING IN BED AWAKE. SCHEDULED MEDS ADMINISTERED, SEE EMAR. PT ASSESSMENT COMPLETE. PT DENIES PAIN, NAUSEA, OR SOB. PT REQUESTS APPLE SAUCE THAT IS AT BEDSIDE. PROVIDED. PT CONTINUES TO HAVE FLAT AFFECT. DISORIENTED REGARDING DATE BUT OTHERWISE ORIENTED. PT DENIES FURTHER NEEDS AT THIS TIME. CALL LIGHT IN REACH.
--- NOTE | 2021-10-16 07:30 | NUR ---
Report received from Hali LOZANO. Pt resting in bed with eyes closed, even and unlabored respirations. No needs identified at this time, call light in reach. Will continue plan of care.
--- NOTE | 2021-10-16 08:30 | NUR ---
Scheduled medications adminstered and assessment complete. Pt up to chair for breakfast. SS insulin provided. pt flat affect, slow to respond. States no pain or needs. Lungs clear, HRR. no edema noted and CMS intact.
--- NOTE | 2021-10-16 10:22 | NUR ---
PATIENT IN BED RESTING AT THIS TIME. VITALS AND I&O'S CHARTED. PATIENT AGREED TO BED BATH LATER TODAY. CALL LIGHT IN REACH. NO FURTHER NEEDS AT THIS TIME.
--- NOTE | 2021-10-16 11:22 | NUR ---
Confirmed with Bradley from [facility] pt will dc tomorrow per Dr. Hollingsworth.
--- NOTE | 2021-10-16 11:50 | NUR ---
Scheduled medications administered, lunch provided. Pt resting and states no needs.
--- NOTE | 2021-10-16 13:16 | NUR ---
PT RESTING ON R SIDE. TURNED LIGHTS OFF AT PT'S REQUEST. GAVE BLESSING AND WILL LET HER REST. SHE THANKED ME
--- NOTE | 2021-10-16 13:37 | NUR ---
PATIENT IN BED RESTING WITH EYES CLOSED. VITALS AND I&O'S CHARTED. CALL LIGHT IN REACH. NO FURTHER NEEDS AT THIS TIME.
--- NOTE | 2021-10-16 14:50 | NUR ---
Received text from [facility] requesting pt arrive between 10-11. Responding I will update Dr. Hollingsworth for orders and schedule wc transport. Called and spoke with [facility] and they can transport at 10:30. They request wc and I texted Bradley and asked if they would set a wc out in the AM for transport.
[2021-10-16] MEDS ORDERED: ISOSORBIDE MONO30 MG PO (16:55)
[2021-10-16] MEDS ORDERED: METOPROLOL SUCC50 MG PO (16:56)
[2021-10-16] MEDS ORDERED: HUMULIN 70100 UNIT/1 SUB-Q ×2 (16:58)
--- NOTE | 2021-10-16 17:00 | NUR ---
Received orders from Dr. Hollingsworth. Faxed [facility] and orders to Bradley at [facility]. Spoke with pt and she is happy to go as she states her spouse is residing there.
[2021-10-16] MEDS ORDERED: HUMULIN R100 UNIT/1 SUB-Q (17:01)
--- NOTE | 2021-10-16 17:36 | NUR ---
PATIENT IN CHAIR FOR DINNER. VITALS AND I&O'S CHARTED. BED BATH GIVEN. CALL LIGHT IN REACH. NO FURTHER NEEDS AT THIS TIME.
--- NOTE | 2021-10-16 17:45 | NUR ---
Scheduled SS insulin administered, pt sitting up in chair, states no pain or needs. Able to swallow medications whole with water.
--- NOTE | 2021-10-16 19:14 | NUR ---
BEDSIDE REPORT FROM LINA Acosta RN, PT RESTING IN BED AFTER UP TO BATHROOM. SHE VERBALIZED NEEDING TO ORDER BREAKFAST, PT DISORIENTED TO TIME, PT RE-ORIENTED, NO OTHER NEEDS OR QUESTIONS AT THIS TIME.
--- NOTE | 2021-10-16 20:48 | NUR ---
PT RESTING IN BED, V/S STABLE, SHE ASKED ABOUT ORDERING BREAKFAST, RE-ORIENTED TO TIME, SHE REQUESTS A SNACK, SUGAR FREE PUDDING PROVIDED, BEDSIDE ACCU CHECK 311, 10 UNITS OF HUMALIN FROM S/S. PT COOPERATIVE WITH CARE, ASSESSMENT COMPLETE. PT THEN UP TO BATHROOM ONE PERSON ASSIST WITH FWW.
--- NOTE | 2021-10-16 22:25 | NUR ---
PT UP TO BATHROOM, THIS RN OFFERED HER MELATONIN TO ASSIST WITH SLEEP, PT SAID YES PLEASE.
--- NOTE | 2021-10-16 23:48 | NUR ---
pt called nurses station to request assistance to the bathroom. pt up with one person assist voided 100ml clear yellow urine, tolerated activity well. skin intact on back side. pt reported itchy on her back, noted to have dry skin, lotion applied. pt back to bed.
--- NOTE | 2021-10-16 23:49 | NUR ---
pt back to bed call light in reach, bed alarm on for pt safety.
--- NOTE | 2021-10-17 01:00 | NUR ---
PATIENT FINISHED HER SNACK. TUCKED IN TO BED. BED ALARM ON. CALL LIGHT IN REACH.
--- NOTE | 2021-10-17 01:08 | NUR ---
PATIENT CALLED TO USE THE BATHROOM. SBA. PATIENT IS BACK IN BED. MIDNIGHT SNACK PROVIDED.
--- NOTE | 2021-10-17 03:09 | NUR ---
PATIENT WAS UP TO THE BATHROOM. PATIENT IS BACK IN BED NOW. NO OTHER NEEDS AT THIS TIME.
--- NOTE | 2021-10-17 03:49 | NUR ---
PT HAS NOT SLEPT WELL OVER SHIFT SHE HAS BEEN UP TO BATHROOM FREQUENTLY. SHE HAS NOT REPORTED ANY PAIN OR NAUSEA THIS SHIFT. SHE HAS BEEN VOIDING QUANTITIY SUFFICIENT, V/S STABLE, I/O QUANTITY SUFICIENT. SHE HAS BEEN A ONE PERSON STANDBY ASSIST WITH FWW, SHE IS ABLE TO GET OUT OF BED INDEPENDENTLY AND BACK INTO BED INDEPENDENTLY. SHE HAS BEEN DISORIENTED TO TIME AND DATE. SHE ASKS FOR SNACKS REGULARLY.
--- NOTE | 2021-10-17 04:35 | NUR ---
PATIENT CALLED TO USE THE RESTROOM. SBA. PATIENT IS BACK IN BED. V/S AND I&O'S DONE. PICKED UP GARBAGE. BED ALARM ON. CALL LIGHT WITHIN REACH.
--- NOTE | 2021-10-17 05:11 | NUR ---
PT UP TO BATHROOM, ONE PERSON STANDBY ASSIST. PT VOIDED, V/S AND I/O COMPLETE. AM ASSESSMENT COMPLETE. PT REQUESTS ANOTHER BLANKET, WARM BLANKET PROVIDED. CALL LIGHT IN REACH.
--- NOTE | 2021-10-17 05:51 | NUR ---
PT UP TO THE BATHROOM, STANDBY ASSIST WITH FWW. STEADY GAIT. PT VOIDED 100ML CLEAR YELLOW URINE. CALL LIGHT IN REACH. PT HAS NO OTHER CONCERNS OR REQUESTS.
--- NOTE | 2021-10-17 07:23 | NUR ---
Report received from Lisandra LOZANO. Pt resting in bed with eyes closed, no needs identified at this time. Will continue plan of care.
--- NOTE | 2021-10-17 07:27 | NUR ---
ASSISTED PATIENT TO BATHROOM. SBA W/ WALKER. ASSISTED PATIENT BACK TO BED. WHITE BOARD UPDATED. FRESH ICE WATER RECIEVED. PATIENT DOES NOT NEED ANYTHING ELSE AT THIS TIME. CALL LIGHT IN REACH.
--- NOTE | 2021-10-17 08:30 | NUR ---
CBG checked, 162. SS insulin and LA insulin provided. Scheduled medications administered, VSS, pt A+O. Saline locked, on room air. Pt has no complaints of pain or needs. Assessment complete. Breakfast delivered.
--- NOTE | 2021-10-17 09:01 | NUR ---
Called and spoke with pt's son as requested. Updated pt is going to [place] today at 10:30. He states, I know you guys are making her go there. Reminded son, we are not making her go any where. This has been her choice as she was not able to take care of herself at home. She is deconditioned and needs help, her spouse is currently residing there and he is her cg at home. Asked son if he would be able to take 3 days of clothing for pt and he is unsure. Informed we can send her with scubs to wear until he can provide clothing and an overnight bag.
== END 2021-10-17 11:00 | disposition home or self-care (01) | DRG 638 ==
LOC: ED 13:54 → MS 16:50 → CCU 16:50 → MS 10-14 13:10
PROVIDERS: ADMIT Internal Medicine; ATTEND Internal Medicine
DX: E11.10 Type 2 diabetes mellitus with ketoacidosis without coma (principal); N17.9 Acute kidney failure, unspecified; Z20.822 Contact with and (suspected) exposure to COVID-19; E11.65 Type 2 diabetes mellitus with hyperglycemia; I25.10 Atherosclerotic heart disease of native coronary artery without angina pectoris; I10 Essential (primary) hypertension; K21.9 Gastro-esophageal reflux disease without esophagitis; E78.5 Hyperlipidemia, unspecified; E03.9 Hypothyroidism, unspecified; J45.909 Unspecified asthma, uncomplicated; E78.00 Pure hypercholesterolemia, unspecified; Z90.710 Acquired absence of both cervix and uterus; Z90.49 Acquired absence of other specified parts of digestive tract; Z98.890 Other specified postprocedural states; Z88.0 Allergy status to penicillin; Z88.2 Allergy status to sulfonamides; Z88.1 Allergy status to other antibiotic agents; Z88.5 Allergy status to narcotic agent; Z88.6 Allergy status to analgesic agent; Z79.4 Long term (current) use of insulin; Z79.899 Other long term (current) drug therapy
CPT/HCPCS: 80048; 80053; 81001; 82010; 82800; 83036; 83735; 84100; 85025; 97110; 97116; 97162; 97165; 97530; 97535; A9270; C9113; C9803; J1650; J1815; J2405; J3475; J7030; J7042; J7060; J7121; U0003

== ENCOUNTER 2022-10-24 07:51 | Emergency (ER) | payer MEDICARE, OTHER ==
[~2022-10-24] VITALS: Ht 149.9 cm; Wt 80.0 kg
[~2022-10-24 07:51] MED LIST changes: +HUMULIN 70100 UNIT/1 SUB-Q; +LEVOTHYROXINE50 MCG PO; +METOCLOPRAMIDE H5 MG PO
--- NOTE | 2022-10-25 17:24 | EKG ---
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
== END 2022-10-24 14:46 | disposition home or self-care (01) ==
LOC: ED 07:51
DX: R55 Syncope and collapse (principal); S01.01XA Laceration without foreign body of scalp, initial encounter; E86.0 Dehydration; J45.909 Unspecified asthma, uncomplicated; I10 Essential (primary) hypertension; E11.9 Type 2 diabetes mellitus without complications; E78.00 Pure hypercholesterolemia, unspecified; Z88.0 Allergy status to penicillin; Z88.2 Allergy status to sulfonamides; Z88.1 Allergy status to other antibiotic agents; Z88.5 Allergy status to narcotic agent; Z88.8 Allergy status to other drugs, medicaments and biological substances; Z79.899 Other long term (current) drug therapy; Z79.4 Long term (current) use of insulin; Z79.82 Long term (current) use of aspirin; W18.30XA Fall on same level, unspecified, initial encounter
CPT/HCPCS: 36415; 70450; 72125; 73030; 80053; 83735; 84484; 85025; 93005; 93010; 96361; 96365; 96375; 99285-25; J2270; J3475; J7030

== ENCOUNTER 2022-12-15 09:05 | Emergency (ER) | payer OTHER, MEDICARE ==
[~2022-12-15] VITALS: Ht 149.9 cm; Wt 79.8 kg
[2022-12-15] MEDS ORDERED: CYMBALTA30 MG PO (10:32)
[2022-12-15] MEDS ORDERED: JANUVIA100 MG PO (10:33)
[2022-12-15] MEDS ORDERED: LOSARTAN POTASS50 MG PO (10:34)
== END 2022-12-15 17:50 | disposition home or self-care (01) ==
LOC: ED 09:05
DX: S06.6X0A Traumatic subarachnoid hemorrhage without loss of consciousness, initial encounter (principal); S01.01XA Laceration without foreign body of scalp, initial encounter; W01.10XA Fall on same level from slipping, tripping and stumbling with subsequent striking against unspecified object, initial encounter; J45.909 Unspecified asthma, uncomplicated; I10 Essential (primary) hypertension; E11.9 Type 2 diabetes mellitus without complications; E78.00 Pure hypercholesterolemia, unspecified; Z88.0 Allergy status to penicillin; Z88.2 Allergy status to sulfonamides; Z88.1 Allergy status to other antibiotic agents; Z88.5 Allergy status to narcotic agent; Z79.899 Other long term (current) drug therapy; Z79.4 Long term (current) use of insulin; Z79.82 Long term (current) use of aspirin
CPT/HCPCS: 12002; 36415; 70450; 72125; 80053; 85025; 85610; 99284-25; G0480; U0003

== ENCOUNTER 2022-12-19 10:21 | Emergency (ER) | payer MEDICARE, OTHER ==
[~2022-12-19] VITALS: Ht 152.4 cm; Wt 80.0 kg
[~2022-12-19 10:21] MED LIST changes: +CYMBALTA30 MG PO; +JANUVIA100 MG PO; +LOSARTAN POTASS50 MG PO
--- OUTSIDE RECORDS SUMMARY | 2022-12-19 10:28 | XMS ---
PreManage Notification: PEPE STEVENS Security Product Accountant Events No recent Security Events currently on file CRITERIA MET - [facility] - 2 Visits in 30 Days CARE PROVIDERS -, Prashant- Dentist: Objects Conservator [facility] PHONE: [phone] TYLOR SHAW Hot Metal Mixer Operator: Foot \T\ Ankle Surgery Current PHONE: [phone] NAY SILVA Hot Metal Mixer Operator Fanny Stapleton PHONE: [phone] TONI ERVIN Internal Medicine Current PHONE: [phone] Rupinder Winchester Recreation Establishment Manager/Forestry Adviser 10/27/2022-Current PHONE: [phone] TRISHA FAIRBANKS Nurse Practitioner Current PHONE: [phone] DEEDEE ALEMAN Nurse Practitioner: Family Current PHONE: Unknown OLGA NELSON Internal Medicine Current PHONE: [phone] KENA CARIAS Nurse Practitioner Current PHONE: [phone] GELA BENJAMIN I. [employer] Journalist Current PHONE: Unknown SALEEM MAYS Nurse Practitioner: Family Current PHONE: [phone] TONYA HAQUE Nurse Practitioner Current PHONE: Unknown YAJAIRA HSU Nurse Practitioner Fanny TANG PHONE: [phone] PEGYG [facility] Nursing [facility] Current PHONE: Unknown SEAMUS CONCE[facility] Current PHONE: [phone] CHAO MASTERSON Nurse Practitioner: Family Current PHONE: Unknown ROXY SMITH Physician Current PHONE: Unknown [place] has no Care Guidelines for this patient. Edward VISIT COUNT (12 MO.) 3 [facility] TOTAL 3 NOTE: Visits indicate total known visits. ED/UCC VISIT TRACKING (12 MO.) 12/19/2022 10:22 [facility] [place] TYPE: Emergency COMPLAINT: - AMS 12/15/2022 09:05 [facility] [place] TYPE: Emergency COMPLAINT: - FALL DIAGNOSES: - Other local company intermodal truck driver (current) drug therapy - Pure hypercholesterolemia, unspecified - Fall on same level from slipping, tripping and stumbling with subsequent striking against unspecified object, initial encounter - Allergy status to other antibiotic agents - Allergy status to penicillin - Cervicalgia - Unspecified asthma, uncomplicated - Traumatic subarachnoid hemorrhage without loss of consciousness, initial encounter - Type 2 diabetes mellitus without complications - laborer marine terminal (current) use of insulin - Essential (primary) hypertension - Allergy status to sulfonamides - Allergy status to narcotic agent - Laceration without foreign body of scalp, initial encounter - [facility] (current) use of aspirin 10/24/2022 07:[address] [facility] [place] TYPE: Emergency COMPLAINT: - FALL, HEAD WOUND DIAGNOSES: - Allergy status to other drugs, medicaments and biological substances - Allergy status to narcotic agent - Dehydration - Laceration without foreign body of scalp, initial encounter - Type 2 diabetes mellitus without complications - Allergy status to penicillin - Allergy status to other antibiotic agents - [facility]PC (current) use of insulin - Allergy status to sulfonamides - Unspecified asthma, uncomplicated - Syncope and collapse - Dizziness and giddiness - Other local company intermodal truck driver (current) drug therapy - Fall on same level, unspecified, initial encounter - laborer marine terminal (current) use of aspirin - Pure hypercholesterolemia, unspecified - Essential (primary) hypertension INPATIENT VISIT TRACKING (12 MO.) No inpatient visits to display in this time frame [email or web address]
== END 2022-12-19 12:39 | disposition home or self-care (01) ==
LOC: ED 10:21
DX: S06.6XAA Traumatic subarachnoid hemorrhage with loss of consciousness status unknown, initial encounter (principal); F03.90 Unspecified dementia, unspecified severity, without behavioral disturbance, psychotic disturbance, mood disturbance, and anxiety; J45.909 Unspecified asthma, uncomplicated; I10 Essential (primary) hypertension; E11.9 Type 2 diabetes mellitus without complications; E78.00 Pure hypercholesterolemia, unspecified; I25.10 Atherosclerotic heart disease of native coronary artery without angina pectoris; K21.9 Gastro-esophageal reflux disease without esophagitis; Z88.0 Allergy status to penicillin; Z88.2 Allergy status to sulfonamides; Z88.1 Allergy status to other antibiotic agents; Z88.8 Allergy status to other drugs, medicaments and biological substances; Z88.5 Allergy status to narcotic agent; Z79.899 Other long term (current) drug therapy; Z79.4 Long term (current) use of insulin; Z79.82 Long term (current) use of aspirin; W19.XXXA Unspecified fall, initial encounter
CPT/HCPCS: 36415; 51701; 70450; 71045; 80053; 81003; 85025; 99285-25